=== PATIENT | male | born 1945 | race Caucasian/White ===

== ENCOUNTER → 2018-06-26 09:57 | Outpatient (CLI) | payer MEDICARE, OTHER, SELFPAY ==
--- NOTE | 2018-06-26 | DI.RAD.S_ITS ---
PROCEDURE: XR CERVICAL SPINE 4V OR 5V INDICATIONS: Cervicalgia TECHNIQUE: 6 views of the cervical spine were acquired, including bilateral oblique views and a swimmer's view. COMPARISON: None. FINDINGS: Bones: No fractures or dislocations to the C7 level. No suspicious lytic or blastic lesions are seen. Mild disc space narrowing can be seen at the C5-C6 and C6-C7 levels. Endplate irregularity and sclerosis can be seen throughout. On oblique images, there is mild to moderate disc space narrowing seen on the left at the C2-C3, C3-C4, and C6-C7 levels. On the right, there is mild to moderate disc space narrowing seen at C3-C4. Soft tissues: No prevertebral soft tissue swelling. The visualized lung apices are unremarkable. IMPRESSION: Age-appropriate cervical spine degenerative changes are seen by plain film. Dictated by: Mina Dickerson M.D. on 06/26/2018 at 10:01 Approved by: Mina Dickerson M.D. on 06/26/2018 at 10:04
[2018-06-26 11:26] LABS: Add Manual Diff / Slide Review NO; Basophils Percent Auto 0.6 % (0-2); Eosinophils Percent Auto 2.7 % (2-4); Hemoglobin 16.1 g/dL (13.5-17.5); Lymphocytes Percent Auto 19.9 % (25-40); Mean Corpuscular HGB Conc 34.9 % (30-36); Mean Corpuscular Hemoglobin 32.9 PG (26-34); Mean Corpuscular Volume 94.2 fL (80-100); Monocytes Percent Auto 8.5 % (3-14); Neutrophils Absolute Auto 5900 /uL (1500-7000); Neutrophils Percent Auto 68.3 % (50-75); Platelet Count 211 X10^3/uL (150-400); Red Blood Cell Count 4.89 X10^6/uL (4.5-5.9); Red Cell Distribution Width 13.6 % (11.6-14.8); White Blood Cell Count 8.6 X10^3/uL (4.5-11.0)
[2018-06-26 11:45] LABS: Alanine Aminotransferase 35 IU/L (21-72); Albumin 4.3 g/dL (3.5-5.0); Albumin Globulin Ratio 1.1 (1.0-2.8); Alkaline Phosphatase 69 U/L (38-126); Aspartate Aminotransferase 25 IU/L (17-59); Bilirubin Total 0.5 mg/dL (0.2-1.3); Blood Urea Nitrogen 21 mg/dL (9-20); Calcium 9.4 mg/dL (8.4-10.2); Carbon Dioxide 26 mmol/L (22-32); Chloride 100 mmol/L (98-107); Estimated Glomerular Filt Rate > 60.0 mL/min (>60); Globulin 3.8 g/dL (1.7-4.1); Glucose 238 mg/dL (80-110); HEMOLYSIS 16 (0-50); Potassium 4.5 mmol/L (3.4-5.1); Sodium 140 mmol/L (137-145); Total Protein 8.1 g/dL (6.3-8.2)
[2018-06-26 11:46] LABS: Hemoglobin A1C% w Est Avg Glu 8.6 % (4.0-6.0)
== END ==
PROVIDERS: Visit Provider Student in an Organized Health Care Education/Training Program
DX: M54.2 Cervicalgia (principal); E11.9 Type 2 diabetes mellitus without complications; E78.5 Hyperlipidemia, unspecified
CPT/HCPCS: 36415; 72050; 80053; 83036; 85025

== ENCOUNTER 2018-09-04 07:32 | Day surgery (SDC) | payer MEDICARE, OTHER, SELFPAY ==
[2018-09-04] VITALS (7 sets, daily range): BP systolic 113–154; BP diastolic 64–89; PULSE 79–93; RESP 15–18; TEMP 36.1–36.8; O2SAT 94–97; BMI 34.1
--- NOTE | 2018-09-04 08:44 | PM.HP.1 ---
History of Present Illness Date Patient Seen: 09/04/18 Time Patient Seen: 08:44 Chief complaint: 53235 Narrative: 73-year-old male who presents for colorectal screening. His last examination was [facility] ago at [facility]. States that he had some polyps at that time. However, he recently underwent a FIT test that was reportedly positive. On further history he denies any recent gastrointestinal symptoms. No nausea, vomiting, loss of appetite, unexplained weight loss, abdominal pain, change in bowel habits, diarrhea, constipation, melena, hematochezia, or bright red blood per rectum. Patient History Medical History Diabetes (Acute) Hyperlipidemia due to type 2 diabetes mellitus (Acute) Hypertension associated with diabetes (Acute) Obesity (Acute) Personal history of colonic polyps (Acute) Surgical History History of cholecystectomy (Acute) History of colonoscopy (Acute) History of umbilical hernia repair (Acute) Social History household members: spouse Family & Social History Social History: household members spouse Meds Home Medications Medication Instructions Recorded Confirmed Type atenolol 50 mg PO BID #0 11/16/03 09/04/18 History Lantus U-100 Insulin 23 unit SQ QPM #0 09/23/17 09/04/18 History glipizide 10 mg PO BIDAC #0 09/23/17 09/04/18 History losartan 50 mg PO DAILY 09/04/18 09/04/18 History Allergies Allergy/AdvReac Type Severity Reaction Status Date / Time Iodine and Iodide Containing Allergy Severe pt could Unverified 10/12/17 12:35 Produc not breathe [IODINE AND IODIDE CONTAINING PRODUC] Sulfa (Sulfonamide Allergy Severe My eyes Unverified 10/12/17 12:35 Antibiotics) close up [SULFA (SULFONAMIDE and my ANTIBIOTICS)] face gets puffy Review of Systems Review of Systems All systems reviewed & are unremarkable except as noted in HPI and below Exam Vital Signs (past 8 hours): - 09/04/18 07:52 Temperature 97.1 F L Pulse Rate 93 H Respiratory Rate 16 Blood Pressure 154/89 H Pulse Oximetry 97 Oxygen Delivery Method Room Air Narrative Exam Narrative: well-nourished well-developed obese male in no acute distress. Alert oriented x3 sclera nonicteric regular rate and rhythm Abdomen obese but soft and nondistended. Nontender. extremities show no clubbing or cyanosis blood sugar 216 today Objective Labs Labs: no radiographic studies for review Assessment & Plan Assessment & Plan narrative: 73-year-old male with personal history of colon polyps and recent positive Hemoccult test. Recommend colonoscopy. Technical details of the procedure were discussed. Risks, benefits, alternatives were explained. Risks including but not limited to sedation, aspiration, bleeding, pain, missed lesion, incomplete examination, need for further radiographic studies, colonic perforation, need for major abdominal surgery, and all attendant risks of major surgery were explained at length. All questions were answered to his satisfaction, and he voiced understanding. Consent was placed on the chart. We will proceed as above.
--- NOTE | 2018-09-04 08:48 | PM.PREOP ---
Pre-operative Note Interval Note History & Physical reviewed/Exam performed by Physician: Yes Changes to H&P: No H&P completed within 30 days and has changed as indicated here:: Patient seen and examined today. History and physical examination placed on the chart. Obviously, there have been no changes in the last 15 min. Proceed today with colonoscopy as planned. ASA Class (for procedural sedation): II
[2018-09-04] MEDS: MIDAZOLAM 5 MG/5 ML VIAL IV (09:04)
[2018-09-04] MEDS: fentaNYL 250 MCG/5 ML INJ IV (09:05)
--- NOTE | 2018-09-04 09:15 | PM.OP.ENDO ---
Operative Date/Time/Diagnoses Date of procedure: 09/04/18 Time of procedure: 09:15 Pre-op diagnosis: Personal history of colon polyps Post-op diagnosis: other ( diverticulosis but otherwise normal colon and rectum) Procedure & Clinicians Study performed: 1. Sedation per surgeon 2. Colonoscopy Same procedure as scheduled: Yes Indications: 73-year-old male who presents with personal history of colon polyps. Last endoscopy was 15 years ago. He also has a recent positive fit test. Colonoscopy is recommended. Surgeon: Jose J Posey Procedure Notes SCOAP/Timeout: yes Procedure in detail: After obtaining informed consent, the patient was brought to the GI suite and placed in the left lateral decubitus position on the examination table. After placement of appropriate monitors, the patient was given incremental doses of Versed and Fentanyl until an appropriate level of sedation was achieved. A time out was held per SCOAP protocol. A digital rectal examination was performed and did not reveal any masses or obstructing lesions. The colonoscope was gently passed into the patient's anus and the entire colon navigated to the level of the cecum with minimal difficulty. Once in the cecum, the scope was withdrawn being sure to go before and beyond all mucosal folds and prominences and get an excellent examination. The findings are noted above. At the level of the rectal vault, the scope was retroflexed and the internal anal canal was examined. The scope was straightened and air aspirated from the colon. The instrument was removed from the patient's body and the procedure was concluded. The patient was allowed to awaken from sedation without difficulty and taken to the post-anesthesia care unit in good condition. Scope withdrawal time: 9:30 min Sedation minutes: 22 Findings: diverticulosis and other findings ( otherwise normal colon and rectum) Specimen(s): none sent Complications: none Recommendations: High fiber diet and Other recommendation ( no need for repeat colonoscopy in the absence of any new symptoms) Plan for aftercare: 1. Discharge home Follow up: as needed Disposition: PACU
--- NOTE | 2018-09-04 09:20 | SUR.PHASEI ---
Some PAC activity seen.
== END 2018-09-04 10:03 | disposition home or self-care (01) ==
PROVIDERS: PCP Student in an Organized Health Care Education/Training Program; Visit Provider Surgery
PROC: 0DJD8ZZ Inspection of Lower Intestinal Tract, Via Natural or Artificial Opening Endoscopic (ICD-10-PCS; CPT 45378; principal; 2018-09-04 08:45)
DX: R19.5 Other fecal abnormalities (principal); Z86.010 Personal history of colon polyps; K57.30 Diverticulosis of large intestine without perforation or abscess without bleeding; E11.9 Type 2 diabetes mellitus without complications; E78.5 Hyperlipidemia, unspecified; I10 Essential (primary) hypertension; E66.9 Obesity, unspecified
CPT/HCPCS: 45378; 99152; J2250; J3010

== ENCOUNTER → 2019-04-03 09:32 | Outpatient (CLI) | payer MEDICARE, OTHER, SELFPAY ==
--- NOTE | 2019-04-03 | DI.US.S_ITS ---
PROCEDURE: US SCROTUM INDICATIONS: SLT TESTICULAR PAIN TECHNIQUE: Real-time scanning was performed of the scrotum and testicles, with image documentation. Color and pulse Doppler interrogation was performed of both testicles. COMPARISON: [facility], , TESTICLE IMAGING, 10/13/2015, 10:26. FINDINGS: Right: Testicle is normal in size at 3.9 x 2.4 x 2.7 cm, and homogenous in echotexture. Calcification along the tunica a beginning in redemonstrated. Epididymis is normal in overall size and morphology. Small right hydrocele. varicoceles. Overlying scrotal skin is normal in thickness. Left: Testicle is normal in size at 3.5 x 2.1 x 2.5 cm, and homogeneous in echotexture. Calcification is seen along the anterior tunica albuginea. Epididymis is normal in overall size and morphology. Small hydrocele and varicocele. Overlying scrotal skin is normal in thickness. Doppler: Color and pulse Doppler demonstrate normal and symmetric arterial flow in both testicles. IMPRESSION: 1. Normal testicles bilaterally. 2. Calcification seen along the anterior tunica albuginea bilaterally which is likely chronic. 3. Bilateral small hydroceles. 4. Left varicocele. Dictated by: Sunil BRAND Interpreted: Joe Luz MD on 04/03/2019 at 10:45 Approved by: Joe Luz M.D. on 04/03/2019 at 16:03
== END ==
PROVIDERS: PCP Student in an Organized Health Care Education/Training Program; Visit Provider Student in an Organized Health Care Education/Training Program
DX: N50.812 Left testicular pain (principal); N43.3 Hydrocele, unspecified; I86.1 Scrotal varices
CPT/HCPCS: 76870

== ENCOUNTER 2019-05-21 15:48 | Emergency (ER) | payer MEDICARE, OTHER, SELFPAY ==
[2019-05-21 15:50] VITALS: BP 167/83; PULSE 95; RESP 18; TEMP 36.6; O2SAT 95; BMI 32.8
--- NOTE | 2019-05-21 15:55 | DI.RAD.S_ITS ---
PROCEDURE: XR RIBS LT MIN 3V W CXR1V INDICATIONS: fall/pain TECHNIQUE: 3 views of the left ribs were acquired, along with a single view chest. COMPARISON: None. FINDINGS: Surgical changes and devices: Cholecystectomy clips. Metallic BB projects over the left upper quadrant of the abdomen. Bones and chest wall: Left eighth and ninth rib fractures noted. No suspicious bony lesions. Overlying soft tissues appear unremarkable. Lungs and pleura: No pneumothorax. Lungs appear clear small left-sided pleural fluid collection. Increased opacification of the left lung base which could represent atelectasis, aspiration or contusion. Mediastinum: Mediastinal contours appear normal. Heart size is normal. IMPRESSION: 1. Left eighth and ninth rib fractures. 2. Trace left-sided pleural fluid collection concerning for hemothorax. No pneumothorax identified. 3. Patchy left basilar opacities compatible atelectasis, aspiration or pulmonary contusion. Dictated by: Antoinette Hurley MD, PhD on 05/21/2019 at 16:41 Approved by: Antoinette Hurley MD, PhD on 05/21/2019 at 16:44
--- NOTE | 2019-05-21 15:55 | DI.RAD.S_ITS ---
PROCEDURE: XR THORACIC SPINE 3V INDICATIONS: fall/pain TECHNIQUE: 3 views of the thoracic spine were acquired. COMPARISON: None. FINDINGS: Bones: No fractures or dislocations. No suspicious bony lesions. 12 pairs of ribs are noted, and appear intact where visualized. Moderate multilevel degenerative disc changes. Soft tissues: No paravertebral stripe thickening. IMPRESSION: No fracture. No acute osseous lesion. If symptoms and/or clinical suspicion for pathology persists, evaluation with MRI may be helpful for further assessment. Dictated by: Antoinette Hurley MD, PhD on 05/21/2019 at 16:44 Approved by: Antoinette Hurley MD, PhD on 05/21/2019 at 16:45
--- NOTE | 2019-05-21 16:51 | ED_ITS ---
HPI - Fall General Chief Complaint: Fall Stated Complaint: GLF, L side and back pain Time Seen by Provider: 05/21/19 15:55 Source: patient and EMS Mode of arrival: EMS Limitations: no limitations History of Present Illness HPI Narrative: Patient comes emergency department complaining of left posterior rib pain [facility] Patient states he was walking outside and slipped in the mud and landed directly on his left side. He states he did not hit his head or lose consciousness. He denies any spinal pain. No difficulty breathing or pain with inspiration. Related Data Home Medications Medication Instructions Recorded Confirmed Lantus U-100 Insulin 23 unit SQ QPM #0 09/23/17 03/13/19 glipizide 10 mg PO BIDAC #0 09/23/17 03/13/19 losartan 50 mg PO DAILY 09/04/18 03/13/19 Resmed Airsense 10 CPAP #1 ea 03/13/19 03/13/19 atenolol 50 mg tablet 50 mg PO DAILY #0 tab 03/13/19 03/13/19 metformin PO BID 03/13/19 03/13/19 Previous Rx's Medication Instructions Recorded albuterol sulfate 90 mcg/actuation 1 inh INHALATION Q4-6H PRN #18 gram 01/13/19 aerosol inhaler hydrocodone-acetaminophen 1 tab PO Q4H PRN #20 tab 05/21/19 Allergies Allergy/AdvReac Type Severity Reaction Status Date / Time Iodine and Iodide Containing Allergy Severe Anaphylaxis Verified 05/21/19 16:02 Produc [IODINE AND IODIDE CONTAINING PRODUC] Sulfa (Sulfonamide Allergy Severe My eyes Verified 05/21/19 16:02 Antibiotics) close up [SULFA (SULFONAMIDE and my ANTIBIOTICS)] face gets puffy Review of Systems Constitutional Constitutional: Denies chills, Denies fatigue, Denies fever(s), Denies frequent falls, Denies lethargy and Denies weakness Eyes Eyes: Denies change in vision, Denies eye discharge, Denies irritation and Denies loss of vision ENT Ears, Nose, Mouth, and Throat: Denies change in voice, Denies dizziness, Denies neck pain, Denies sore throat and Denies throat swelling Cardiovascular Cardiovascular: Denies chest pain, Denies irregular heart rhythm, Denies lightheadedness, Denies palpitations, Denies dyspnea, Denies dyspnea on exertion and Denies orthopnea Respiratory Respiratory: Denies cough, Denies dyspnea, Denies dyspnea on exertion and Denies wheezing Gastrointestinal Gastrointestinal: Denies abdominal pain, Denies change in bowel habits, Denies diarrhea, Denies nausea and Denies vomiting Genitourinary Genitourinary: Denies hematuria, Denies flank pain, Denies urinary incontinence and Denies urinary urgency Musculoskeletal Musculoskeletal: Reports back pain, Denies muscle weakness, Denies neck pain, Denies numbness and Denies tingling Integumentary/Breasts Skin/Breast: Denies pruritus, Denies erythema, Denies rash and Denies wounds Neurologic Neurologic: Denies behavioral changes, Denies confusion, Denies dizziness, Denies frequent falls, Denies loss of vision, Denies numbness, Denies tingling and Denies weakness Psychiatric Psychiatric: Denies anxiety, Denies behavioral changes, Denies confusion, Denies depression, Denies homicidal ideation and Denies suicidal ideation Endocrine Endocrine: Denies fatigue, Denies flushing and Denies palpitations Hematologic/Lymphatic Hematologic/Lymphatic: Denies easy bruising Allergic/Immunologic Allergic/Immunologic: Denies urticaria, Denies throat swelling and Denies wheezing Patient History Medical History Diabetes (Acute) Hyperlipidemia due to type 2 diabetes mellitus (Acute) Hypertension associated with diabetes (Acute) Obesity (Acute) Obstructive sleep apnea of adult (Chronic ~1994) Personal history of colonic polyps (Acute) Surgical History History of cholecystectomy (Acute) History of colonoscopy (Acute) History of umbilical hernia repair (Acute) Social History marital status: household members: spouse Smoking Status: Former smoker Exam Initial Vital Signs Initial Vital Signs: Vital Signs Temperature 97.8 F 05/21/19 15:50 Pulse Rate 95 H 05/21/19 15:50 Respiratory Rate 18 05/21/19 15:50 Blood Pressure 167/83 H 05/21/19 15:50 Pulse Oximetry 95 05/21/19 15:50 Const General: cooperative and well developed Nutritional Appearance: well nourished Orientation: alert, awake, oriented x3 and not confused HENMT Head: normocephalic and atraumatic Ears: external ears normal Nose: external nose normal and No nasal discharge Face and sinus: sinuses nontender, face symmetric, no sinus tenderness and No dry mucous membranes Mouth: oral mucosae normal and moist mucous membranes Teeth and gingiva: dentition normal Eyes General: appearance normal, both eyes and all related structures Eyelids: eyelids normal Conjunctivae: conjunctivae normal Sclera: sclerae normal Pupils: PERRL EOM: EOM intact bilaterally Neck Neck: normal visual inspection, trachea midline, No lymphadenopathy, No midline deformity and No JVD Lymphatic: No lymphedema Chest Chest: normal inspection of the chest Resp Effort & Inspection: normal respiratory effort, able to speak in complete sentences, no respiratory distress and no use of accessory muscles Auscultation: clear to auscultation bilaterally, no rales, no rhonchi and no wheezes Cardio Rate: regular rate Rhythm: regular rhythm Heart Sounds: no click, no gallops, no murmurs and no rubs Pulses: normal peripheral pulses GI Inspection: non-distended Palpation: soft, no hepatosplenomegaly, No guarding, No pulsatile mass and No tender Back/Spine/Pelvis Back: No CVA tenderness Cervical Spine: cervical ROM normal and No pain with cervical ROM Thoracic/Lumbar Spine: thoracic and lumbar spine normal to inspection Other: Patient has no tenderness or step-off and the level of the spine. He is noted to have point tenderness of the posteromedial aspect of his left lower ribcage. No step-off or crepitus. No bony instability. Skin General: no rashes or lesions noted, No jaundice and No petechiae Neuro General: alert, oriented x3, gait normal and no focal motor deficits Speech: speech normal Extrem General: full ROM, no clubbing, cyanosis or edema, no pedal edema and no calf tenderness Psych Appearance: well kempt Mental Status: mental status grossly normal Attitude: cooperative Thought Content: normal and suicidality Judgment: judgment good Course Course Course Narrative: Patient was worked up with x-rays of the ribs and thoracic spine. He was found to have fractures of his 8th and 9th ribs posteriorly, with small amount of fluid in the chest cavity on the left, with possibility of atelectasis, aspiration, or contusion. Considering the circumstances, I felt that it was most likely that the patient had either atelectasis or a small area of contusion or even small hemothorax. At this point in time, the patient is breathing comfortably the areas very small and the ribcage is stable. As such, I feel patient is stable for discharge home. We have discussed home management of symptoms, as well as the usual indications for return. Patient is given incentive spirometer to help encourage deep breathing. He will also be given a prescription for analgesia for home. Orders Ordered: ED Orders 05/21/19 15:55 XR ribs LT min 3V w CXR1V Stat XR thoracic spine 3V Stat Vital Signs Vital signs: Vital Signs - 8 hr 05/21/19 15:50 Temperature 97.8 F Pulse Rate 95 H Respiratory Rate 18 Blood Pressure 167/83 H Pulse Oximetry 95 MDM - Fall Medical Records Attestation: I reviewed the patient's medical records. Imaging Data Chest/ribs x-ray: Radiologist's impression: PROCEDURE: XR RIBS LT MIN 3V W CXR1V INDICATIONS: fall/pain TECHNIQUE: 3 views of the left ribs were acquired, along with a single view chest. COMPARISON: None. FINDINGS: Surgical changes and devices: Cholecystectomy clips. Metallic BB projects over the left upper quadrant of the abdomen. Bones and chest wall: Left eighth and ninth rib fractures noted. No suspicious bony lesions. Overlying soft tissues appear unremarkable. Lungs and pleura: No pneumothorax. Lungs appear clear small left-sided pleural fluid collection. Increased opacification of the left lung base which could represent atelectasis, aspiration or contusion. Mediastinum: Mediastinal contours appear normal. Heart size is normal. IMPRESSION: 1. Left eighth and ninth rib fractures. 2. Trace left-sided pleural fluid collection concerning for hemothorax. No pneumothorax identified. 3. Patchy left basilar opacities compatible atelectasis, aspiration or pulmonary contusion. Dictated by: Antoinette Hurley MD, PhD on 05/21/2019 at 16:41 Approved by: Antoinette Hurley MD, PhD on 05/21/2019 at 16:44 T spine x-ray: Radiologist's impression: PROCEDURE: XR THORACIC SPINE 3V INDICATIONS: fall/pain TECHNIQUE: 3 views of the thoracic spine were acquired. COMPARISON: None. FINDINGS: Bones: No fractures or dislocations. No suspicious bony lesions. 12 pairs of ribs are noted, and appear intact where visualized. Moderate multilevel degenerative disc changes. Soft tissues: No paravertebral stripe thickening. IMPRESSION: No fracture. No acute osseous lesion. If symptoms and/or clinical suspicion for pathology persists, evaluation with MRI may be helpful for further assessment. Dictated by: Antoinette Hurley MD, PhD on 05/21/2019 at 16:44 Approved by: Antoinette Hurley MD, PhD on 05/21/2019 at 16:45 Discharge Plan Departure Patient Disposition: Home Clinical Impression: Multiple rib fractures Qualifiers: Encounter type: initial encounter Fracture type: closed Laterality: left Qualified Code(s): S22.42XA - Multiple fractures of ribs, left side, initial encounter for closed fracture Discharge Date/Time: 05/21/19 17:25 Instructions: DI for Rib Fracture Activity Restrictions/Additional Instructions: Your x-rays show that you have broken two of your ribs on the backside. These will heal on their own, but will be painful in the process. You may take the pain medication as needed, and be sure to do the breathing exercises, as direct ed, to keep your lungs open and prevent formation of pneumonia. Prescriptions: New hydrocodone-acetaminophen 5-325 mg tablet 1 tab PO Q4H PRN (Reason: pain) Qty: 20 RF: 0 No Action albuterol sulfate 90 mcg/actuation HFA aerosol inhaler 1 inh INHALATION Q4-6H PRN (Reason: shortness of breath) Qty: 18 RF: 0 Lantus U-100 Insulin 100 UNIT/1 ML solution 23 unit SQ QPM Qty: 0 RF: 0 glipizide 10 MG tablet 10 mg PO BIDAC Qty: 0 RF: 0 atenolol 50 mg tablet 50 mg PO DAILY Qty: 0 RF: 0 losartan 50 mg Tablet 50 mg PO DAILY RF: 0 metformin PO BID RF: 0 (DME) Resmed Airsense 10 CPAP Qty: 1 RF: 0 Referrals: Shahnaz Mahmood PA-C [Primary Care Provider] -
--- NOTE | 2019-05-21 17:02 | CM.DPC ---
spoke with Dr. Gonzales - pt. child psychiatrist who saw him last year stated that although he didn't routinely care for him, he only knew the pt. to have a history of ADHD and no other mental/behavioral health diagnosis.
--- NOTE | 2019-05-21 17:04 | CM.DANOTE ---
spoke to father Wiliam via phone. Reported that pt. contacted via fax himself, pt. mother, brother and sister Toño about midnight to tell them his was tired of the pain and tell them he loved them. The patient then faxed his brother that he'd let him know the location of his car and keys in a short while so he could pick them up. Brother contacted father who advised him to call police. found pt. care in parking lot of [place]. KIRK called out to pt. -who was on the bridge - the pt. started jogging and the police had to catch him and grab him as he was climbing over the railing. Police report is in chart. Father denies any prior SI or HI and states he didn'd see this incident coming at all.
--- NOTE | 2019-05-21 17:08 | CM.DPC ---
Radha James updated for plan of care. Awaiting DCR assessment. Phone number for mom (Celeste... [phone]) and father (Wiliam...[phone]). To contact if needed. Will gladly drive from [place].
[2019-05-21 17:15] VITALS: BP 144/73; PULSE 80; RESP 12; O2SAT 98
== END 2019-05-21 17:25 | disposition home or self-care (01) ==
PROVIDERS: Emergency Provider Emergency Medicine; PCP Student in an Organized Health Care Education/Training Program
DX: S22.42XA Multiple fractures of ribs, left side, initial encounter for closed fracture (principal); W01.0XXA Fall on same level from slipping, tripping and stumbling without subsequent striking against object, initial encounter
CPT/HCPCS: 71101; 72072; 99282; 99283

== ENCOUNTER → 2019-06-14 15:50 | Outpatient (CLI) | payer MEDICARE, OTHER, SELFPAY ==
--- NOTE | 2019-06-14 | DI.RAD.S_ITS ---
PROCEDURE: XR RIBS LT MIN 3V W CXR1V INDICATIONS: closed fracture of mult ribs of left side TECHNIQUE: 2 views of the left ribs were acquired, along with a single view chest. COMPARISON: [facility], RACIEL, CHEST 2 VIEW, 07/14/2017, 13:20. [facility], , XR RIBS LT MIN 3V W CXR1V, 05/21/2019, 16:13. FINDINGS: Surgical changes and devices: Cholecystectomy clips are noted. Bones and chest wall: Minimally displaced left eighth and ninth rib fractures are again noted. No suspicious bony lesions. Overlying soft tissues appear unremarkable. Lungs and pleura: No pleural effusions or pneumothorax. Lungs appear clear. Mediastinum: Mediastinal contours appear normal. Heart size is normal. IMPRESSION: 1. Left eighth and ninth rib fractures with minimal displacement. Dictated by: Tavo Ramos M.D. on 06/14/2019 at 16:30 Approved by: Tavo Ramos M.D. on 06/14/2019 at 16:34
== END ==
PROVIDERS: PCP Student in an Organized Health Care Education/Training Program; Visit Provider Physician Assistant
DX: S22.42XD Multiple fractures of ribs, left side, subsequent encounter for fracture with routine healing (principal); R07.81 Pleurodynia
CPT/HCPCS: 71101

== ENCOUNTER → 2019-07-09 14:37 | Outpatient (ROUT) | payer MEDICARE, OTHER, SELFPAY ==
[2019-07-09 15:22] LABS: Hemoglobin A1C% w Est Avg Glu 9.1 % (4.0-6.0)
== END ==
PROVIDERS: PCP Student in an Organized Health Care Education/Training Program; Visit Provider Student in an Organized Health Care Education/Training Program
DX: E11.9 Type 2 diabetes mellitus without complications (principal)
CPT/HCPCS: 83036

== ENCOUNTER → 2019-10-26 15:38 | Outpatient (ROUT) | payer MEDICARE, OTHER, SELFPAY | PROVIDERS: PCP Student in an Organized Health Care Education/Training Program; Visit Provider Internal Medicine | DX: S90.822A Blister (nonthermal), left foot, initial encounter (principal) | CPT/HCPCS: 87070; 87075; 87205 ==

== ENCOUNTER → 2019-12-08 08:15 | Outpatient (CLI) | payer MEDICARE, OTHER, SELFPAY ==
[2019-12-08 08:55] LABS: Add Manual Diff / Slide Review NO; Basophils Absolute Auto 0 /uL (0-100); Basophils Percent Auto 0.6 % (0-2); Eosinophils Absolute Auto 200 /uL (0-450); Eosinophils Percent Auto 3.6 % (2-4); Hematocrit 45.2 % (41-53); Hemoglobin 15.9 g/dL (13.5-17.5); Lymphocytes Absolute Auto 1500 /uL (1100-4500); Lymphocytes Percent Auto 22.6 % (25-40); Mean Corpuscular HGB Conc 35.3 % (30-36); Mean Corpuscular Hemoglobin 33.4 PG (26-34); Mean Corpuscular Volume 94.9 fL (80-100); Monocytes Absolute Auto 600 /uL (0-900); Monocytes Percent Auto 9.6 % (3-14); Neutrophils Absolute Auto 4200 /uL (1500-7000); Neutrophils Percent Auto 63.6 % (50-75); Platelet Count 194 X10^3/uL (150-400); Red Blood Cell Count 4.76 X10^6/uL (4.5-5.9); Red Cell Distribution Width 14.5 % (11.6-14.8); White Blood Cell Count 6.6 X10^3/uL (4.5-11.0)
[2019-12-08 09:15] LABS: Hemoglobin A1C% w Est Avg Glu 8.1 % (4.0-6.0)
[2019-12-08 09:16] LABS: Alanine Aminotransferase 36 IU/L (<50); Albumin 4.2 g/dL (3.5-5.0); Albumin Globulin Ratio 1.1 (1.0-2.8); Alkaline Phosphatase 65 U/L (38-126); Aspartate Aminotransferase 33 IU/L (17-59); BUN Creatinine Ratio 24.3 (6-22); Bilirubin Total 0.5 mg/dL (0.2-1.3); Blood Urea Nitrogen 18 mg/dL (9-20); Calcium 9.6 mg/dL (8.4-10.2); Carbon Dioxide 25 mmol/L (22-32); Chloride 101 mmol/L (98-107); Cholesterol 149 mg/dL (140-199); Estimated Glomerular Filt Rate > 60.0 mL/min (>60); Globulin 3.7 g/dL (1.7-4.1); Glucose 221 mg/dL (80-110); HDL Cholesterol 58 mg/dL (40-60); HEMOLYSIS < 15 (0-50); LDL Cholesterol Calculated 69 mg/dL (<100); Potassium 4.3 mmol/L (3.4-5.1); Sodium 136 mmol/L (137-145); Total Protein 7.9 g/dL (6.3-8.2); Triglycerides 110 mg/dL (35-150)
== END ==
PROVIDERS: PCP Student in an Organized Health Care Education/Training Program; Referring Provider Student in an Organized Health Care Education/Training Program; Visit Provider Student in an Organized Health Care Education/Training Program
DX: E78.5 Hyperlipidemia, unspecified (principal); E11.40 Type 2 diabetes mellitus with diabetic neuropathy, unspecified
CPT/HCPCS: 36415; 80053; 80061; 83036; 85025

== ENCOUNTER → 2020-09-11 14:58 | Outpatient (ROUT) | payer MEDICARE, OTHER, SELFPAY ==
[2020-09-11 15:23] LABS: Hematocrit 46.9 % (41-53); Hemoglobin 15.5 g/dL (13.5-17.5); Mean Corpuscular HGB Conc 33.1 % (30-36); Mean Corpuscular Hemoglobin 32.2 PG (26-34); Mean Corpuscular Volume 97.2 fL (80-100); Platelet Count 216 X10^3/uL (150-400); Red Blood Cell Count 4.82 X10^6/uL (4.5-5.9); White Blood Cell Count 8.9 X10^3/uL (4.5-11.0)
[2020-09-11 15:39] LABS: Alanine Aminotransferase 32 IU/L (<50); Albumin 4.2 g/dL (3.5-5.0); Albumin Globulin Ratio 1.3 (1.0-2.8); Alkaline Phosphatase 65 U/L (38-126); Aspartate Aminotransferase 26 IU/L (17-59); BUN Creatinine Ratio 26.3 (6-22); Bilirubin Total 0.4 mg/dL (0.2-1.3); Blood Urea Nitrogen 25 mg/dL (9-20); Calcium 10.2 mg/dL (8.4-10.2); Carbon Dioxide 32 mmol/L (22-32); Chloride 99 mmol/L (98-107); Estimated Glomerular Filt Rate > 60.0 mL/min (>60); Globulin 3.2 g/dL (1.7-4.1); Glucose 178 mg/dL (80-110); HEMOLYSIS < 15 (0-50); Potassium 4.6 mmol/L (3.4-5.1); Sodium 138 mmol/L (137-145); Total Protein 7.4 g/dL (6.3-8.2)
== END ==
PROVIDERS: PCP Student in an Organized Health Care Education/Training Program; Visit Provider Student in an Organized Health Care Education/Training Program
DX: I10 Essential (primary) hypertension (principal); E11.40 Type 2 diabetes mellitus with diabetic neuropathy, unspecified; E11.65 Type 2 diabetes mellitus with hyperglycemia; E78.5 Hyperlipidemia, unspecified
CPT/HCPCS: 80053; 83036; 85027

== ENCOUNTER → 2021-02-11 11:20 | Outpatient (CLI) | payer MEDICARE, OTHER, SELFPAY ==
[2021-02-11 12:26] LABS: COVID19 -Nasal RAPID Negative (Negative)
== END ==
PROVIDERS: PCP Student in an Organized Health Care Education/Training Program; Referring Provider Student in an Organized Health Care Education/Training Program; Visit Provider Student in an Organized Health Care Education/Training Program
DX: R05 Cough (principal); R50.9 Fever, unspecified; Z20.822 Contact with and (suspected) exposure to COVID-19
CPT/HCPCS: 87635

== ENCOUNTER → 2021-10-29 10:39 | Outpatient (CLI) | payer OTHER, SELFPAY ==
[2021-10-29 11:59] LABS: COVID19 -Nasal RAPID Negative (Negative)
== END ==
PROVIDERS: Family Provider Student in an Organized Health Care Education/Training Program; PCP Student in an Organized Health Care Education/Training Program; Referring Provider Student in an Organized Health Care Education/Training Program; Visit Provider Internal Medicine
DX: Z20.822 Contact with and (suspected) exposure to COVID-19 (principal)
CPT/HCPCS: 87635; C9803

== ENCOUNTER → 2021-10-30 12:33 | Outpatient (CLI) | payer OTHER, SELFPAY ==
--- NOTE | 2021-11-04 11:17 | PM.PFT.1 ---
Pulmonary Function Test Referral & Results Date Patient Seen: 10/30/21 Requesting provider: Chris Morin Results: The spirometry demonstrates an FVC of 1.91 L which is 50% of predicted. The FEV1 was measured at 1.66 L which is 61% of predicted. The FEV1/FVC ratio was 87 which is 120% of predicted. Following the administration of bronchodilator there was no notable change. Lung volumes show an SVC of 2.42 Lwhich is 58% of predicted. The diffusing capacity was measured at 18.69 which is 63% of predicted. No hemoglobin value was provided, so no correction for potential anemia could be made, if appropriate. The maximum voluntary ventilation was reduced Interpretation: This study demonstrates possible mild obstructive lung disease based on reduction FEV1 although FEV1/FVC ratio is preserved. There is no evidence of benefit after bronchodilator administration There is a moderate reduction in lung volumes suggesting moderate restrictive lung disease is present which would potentially explain the abnormality of FEV1 above There is also a [id number] reduction diffusing capacity suggesting disease at the capillary alveolar level Clinical correlation suggested
== END ==
PROVIDERS: Family Provider Student in an Organized Health Care Education/Training Program; PCP Student in an Organized Health Care Education/Training Program; Referring Provider Nurse Practitioner Family; Visit Provider Nurse Practitioner Family
DX: R06.00 Dyspnea, unspecified (principal); Z87.891 Personal history of nicotine dependence; J98.8 Other specified respiratory disorders
CPT/HCPCS: 94060; 94726; 94729

== ENCOUNTER 2021-12-11 10:46 | Emergency (ER) | payer MEDICARE, OTHER, SELFPAY ==
[2021-12-11] VITALS (7 sets, daily range): BP systolic 102–136; BP diastolic 55–82; PULSE 48–56; RESP 15–18; TEMP 36.6; O2SAT 96–98; BMI 33.7
--- NOTE | 2021-12-11 15:18 | ED.MALEGU ---
HPI - Male Genitourinary <Rae Pulido, [facility] - Last Filed: 12/11/21 16:39> General Chief complaint: Urogenital-Male Stated complaint: bladder infection Time Seen by Provider: 12/11/21 15:07 Source: patient Mode of arrival: Ambulatory History of Present Illness HPI Narrative: This is a 76-year-old male with history of low back pain, diabetes on insulin and states that he has history of ?bladder pains ?who presents to the emergency department today after physical therapy for bladder pressure and concern for urinary infection. Patient states that he was at physical therapy, was doing one of the stretches near the end which exacerbated his low back pain, he states that he started having bladder spasms at that time as well and wanted to have his urine evaluated for infection. He denies any fever, chills, your vomiting. He states that he is on tamsulosin for his prostate, denies ever needing to catheterize himself. He denies any dribbling, penile discharge, flank pain, or other symptom at this time. Patient endorses low back pain and tightness of the paraspinal muscles in his low lumbar area. Related Data Home Medications Medication Instructions Recorded Confirmed glipizide 10 mg tablet 10 mg PO BIDAC ##0 09/23/17 03/13/19 insulin glargine 100 unit/mL 23 unit SQ QPM ##0 09/23/17 03/13/19 subcutaneous solution (Lantus U-100 Insulin) losartan 50 mg tablet 50 mg PO DAILY 09/04/18 03/13/19 Resmed Airsense 10 CPAP #1 ea 03/13/19 03/13/19 atenolol 50 mg tablet 50 mg PO DAILY #0 tabs 03/13/19 03/13/19 metformin PO BID 03/13/19 03/13/19 Previous Rx's Medication Instructions Recorded albuterol sulfate 90 mcg/actuation 1 inh inhalation Q4-6H PRN 01/13/19 aerosol inhaler shortness of breath #18 grams hydrocodone 5 mg-acetaminophen 325 1 tab PO Q4H PRN pain #20 tabs 05/21/19 mg tablet Allergies Allergy/AdvReac Type Severity Reaction Status Date / Time Iodine and Iodide Containing Allergy Severe Anaphylaxis Verified 12/11/21 11:03 Produc [IODINE AND IODIDE CONTAINING PRODUC] Sulfa (Sulfonamide Allergy Severe My eyes Verified 12/11/21 11:03 Antibiotics) close up [SULFA (SULFONAMIDE and my ANTIBIOTICS)] face gets puffy Review of Systems <CHELY Raymond - Last Filed: 12/11/21 16:39> Review of Systems Narrative: General: denies fever, chills, malaise, sweats, fatigue Head/Neck: denies headache, neck pain, dizziness Eyes: denies visual changes, eye pain Cardio: denies chest pain, palpitations, edema Respiratory: denies dyspnea, cough, orthopnea GI: denies abdominal pain, nausea, vomiting, or diarrhea : denies dysuria, hematuria, urinary retention, endorses urinary frequency and bladder pressure, denies any incontinence or dribbling MSK: denies joint pain, muscle weakness Skin: denies rash, itching, skin lesions or other Neuro: denies numbness, tingling Patient History <CHELY Raymond - Last Filed: 12/11/21 16:39> Medical History Diabetes Hyperlipidemia due to type 2 diabetes mellitus Hypertension associated with diabetes Obesity Obstructive sleep apnea of adult (~1994) Personal history of colonic polyps Surgical History History of cholecystectomy History of colonoscopy History of umbilical hernia repair Social History marital status: household members: spouse Smoking Status: Former smoker Smoking Status: Former smoker alcohol intake frequency: holidays/special occasions only Substance Use Type: does not use Exam <CHELY Raymond - Last Filed: 12/11/21 16:39> Narrative Exam Narrative: Independently reviewed vitals signs and nursing notes. General: cooperative, comfortable, in no acute distress, well groomed Head: atraumatic, symmetrical facial expressions Neck: supple Eyes: equal round and reactive, EOMI, conjunctiva normal Nose: nares patent, no rhinorrhea Mouth/Throat: moist mucus membranes Cardiovascular: regular rate and rhythm, no peripheral edema, warm extremities Respiratory: normal effort, able to speak in complete sentences, no audible wheezing, stridor, or rales. No retractions or tachypnea. GI: abdomen soft, nontender to palpation, nondistended, no masses, no exquisite tenderness with exam, without guarding or rebound. MSK: moves all extremities, neurovascularly intact, no weakness, normal tone Skin: brisk capillary refill, no rash, no erythema Neuro: normal speech and cognition, A&O x3 Psych: mental status is grossly normal, congruent mood, normal affect, pleasant and cooperative Initial Vital Signs Initial Vital Signs: Vital Signs Temperature 97.8 F 12/11/21 11:02 Pulse Rate 56 L 12/11/21 11:02 Respiratory Rate 15 12/11/21 11:02 Blood Pressure 136/64 12/11/21 11:02 Pulse Oximetry 98 12/11/21 11:02 Oxygen Delivery Method 12/11/21 11:02 <Kymberly Andrews DO - Last Filed: 12/19/21 18:36> Initial Vital Signs Initial Vital Signs: Vital Signs Temperature 97.8 F 12/11/21 11:02 Pulse Rate 56 L 12/11/21 11:02 Respiratory Rate 15 12/11/21 11:02 Blood Pressure 136/64 12/11/21 11:02 Pulse Oximetry 98 12/11/21 11:02 Oxygen Delivery Method 12/11/21 11:02 Course <CHELY Raymond - Last Filed: 12/11/21 16:39> Orders Ordered: Discontinued Medications Acetaminophen (Acetaminophen 325 Mg Tablet) 975 mg PO NOW ONE Stop: 12/11/21 15:21 Last Admin: 12/11/21 15:46 Dose: 975 mg Documented By: LORIN Lidocaine (Lidocaine Patch 1 Each Adh..Patch) 1 each TOP NOW ONE Stop: 12/11/21 15:21 Last Admin: 12/11/21 15:46 Dose: 1 each Documented By: OW Vital Signs Vital signs: Vital Signs - 8 hr 12/11/21 11:02 12/11/21 14:27 12/11/21 14:20 Temperature 97.8 F Pulse Rate 56 L 54 L Respiratory Rate 15 18 Blood Pressure 136/64 114/55 L Pulse Oximetry 98 98 Oxygen Delivery Method Room Air 12/11/21 14:26 12/11/21 14:26 12/11/21 14:30 Temperature Pulse Rate 49 L 48 L Respiratory Rate Blood Pressure 114/55 L Pulse Oximetry 98 97 Oxygen Delivery Method 12/11/21 14:31 12/11/21 14:31 12/11/21 15:00 Temperature Pulse Rate 48 L Respiratory Rate Blood Pressure 103/57 L 102/82 Pulse Oximetry 96 Oxygen Delivery Method 12/11/21 15:00 Temperature Pulse Rate 50 L Respiratory Rate Blood Pressure Pulse Oximetry 98 Oxygen Delivery Method <Kymberly Andrews DO - Last Filed: 12/19/21 18:36> Orders Ordered: Discontinued Medications Acetaminophen (Acetaminophen 325 Mg Tablet) 975 mg PO NOW ONE Stop: 12/11/21 15:21 Last Admin: 12/11/21 15:46 Dose: 975 mg Documented By: OW Lidocaine (Lidocaine Patch 1 Each Adh..Patch) 1 each TOP NOW ONE Stop: 12/11/21 15:21 Last Admin: 12/11/21 15:46 Dose: 1 each Documented By: LORIN Vital Signs Vital signs: Vital Signs - 8 hr 12/11/21 11:02 12/11/21 14:27 12/11/21 14:20 Temperature 97.8 F Pulse Rate 56 L 54 L Respiratory Rate 15 18 Blood Pressure 136/64 114/55 L Pulse Oximetry 98 98 Oxygen Delivery Method Room Air 12/11/21 14:26 12/11/21 14:26 12/11/21 14:30 Temperature Pulse Rate 49 L 48 L Respiratory Rate Blood Pressure 114/55 L Pulse Oximetry 98 97 Oxygen Delivery Method 12/11/21 14:31 12/11/21 14:31 12/11/21 15:00 Temperature Pulse Rate 48 L Respiratory Rate Blood Pressure 103/57 L 102/82 Pulse Oximetry 96 Oxygen Delivery Method 12/11/21 15:00 Temperature Pulse Rate 50 L Respiratory Rate Blood Pressure Pulse Oximetry 98 Oxygen Delivery Method MDM - Male Genitourinary <CHELY Raymond - Last Filed: 12/11/21 16:39> Lab Data Labs: Lab Results 12/11/21 Range/Units 14:22 Urine Color Yellow Urine Appearance Clear Urine pH 5.0 (4.5-8.0) Ur Specific [place] 1.020 (1.000-1.035) Urine Protein Negative (Negative) Urine Glucose (UA) 2+ H (Negative) g/dL Urine Ketones Negative (NEGATIVE) Urine Occult Blood Negative (Negative) Urine Nitrate Negative (Negative) Urine Bilirubin Negative (NEGATIVE) Urine Urobilinogen 0.2 (0.2) E.U./dL Ur Leukocyte Esterase Negative (NEGATIVE) Urine RBC None seen (0-5/HPF) Urine WBC None seen (0-5/HPF) Urine Bacteria None seen (None) Ur Culture Indicated? Cult not indicated Point of Care Testing Glucose POC 101 Urine Dip Bedside Urine Glucose 1000 mg/dl Bedside Urine Bilirubin - Negative Bedside Urine Ketone - Negative Urine Specific [place] 1.025 Bedside Urine Occult Blood - Negative Bedside Urine pH 6.0 Bedside Urine Protein - Negative Bedside Urine Urobilinogen - Negative Bedside Urine Nitrite - Negative Bedside Urine Leukocytes - Negative Esterase MDM Narrative Medical decision making narrative: This is a pleasant 76-year-old male with history of diabetes-insulin dependent, hypertension, enlarged prostate on tamsulosin who presents to the emergency department After his PT appointment for urinary frequency/bladder pressure, and exacerbation of his chronic low back pain during a stretch while at physical therapy. Patient states that he has been urinating more frequently than usual, urine dip showed elevated glucose so serum glucose was checked, his was 108. Patient denies any significant bladder pressure or pain at this time, post void residual was completed by bedside RN, with less than 15 mL in his bladder. Urine microscopy was negative for wbc's, leukocyte esterase, red blood cells, culture is pending. Discussed patient's low back pain and water symptoms, encouraged him to follow-up with a primary care provider if this is ongoing, it could be his BPH. Will follow-up on urine culture, patient was given a lidocaine patch and Tylenol today in the emergency department, he states that he will continue to go to physical therapy for this, understands that there is no signs of infection in his urine currently. He denies any fever, chills, nausea vomiting, fatigue, or other symptom. He does not have any flank pain, denies a history of kidney stones. He was given strict return precautions, No peritoneal signs on abdominal exam. Patient remains p.o. tolerant. Serial abdominal exam without increase in abdominal pain. Given history and exam, low suspicion for acute abdominal process, such as acute cholecystitis, pancreatitis, perforated viscus, atypical appendicitis, colitis, diverticulitis or torsion. Extensive conversation about ER return precautions and need for close follow-up. Multiple etiologies of back pain considered including; Epidural abscess, cauda equina, mass occupying lesion, lumbar fracture, intra-abdominal pathology chronic neuropathic pain and other considered. Patient is appropriate and amenable to discharge home. Vital signs are stable on repeat examination is unremarkable. Patient has been informed of results. Patient has been given strict return to ER precautions for any new or worsening symptoms. Patient understands to follow up closely with outpatient providers as instructed. Patient understands plan and agrees to discharge home. All questions and concerns answered at this time. <Kymberly Andrews, - Last Filed: 12/19/21 18:36> Lab Data Labs: Lab Results 12/11/21 Range/Units 14:22 Urine Color Yellow Urine Appearance Clear Urine pH 5.0 (4.5-8.0) Ur Specific [place] 1.020 (1.000-1.035) Urine Protein Negative (Negative) Urine Glucose (UA) 2+ H (Negative) g/dL Urine Ketones Negative (NEGATIVE) Urine Occult Blood Negative (Negative) Urine Nitrate Negative (Negative) Urine Bilirubin Negative (NEGATIVE) Urine Urobilinogen 0.2 (0.2) E.U./dL Ur Leukocyte Esterase Negative (NEGATIVE) Urine RBC None seen (0-5/HPF) Urine WBC None seen (0-5/HPF) Urine Bacteria None seen (None) Ur Culture Indicated? Cult not indicated Point of Care Testing Glucose POC 101 Urine Dip Bedside Urine Glucose 1000 mg/dl Bedside Urine Bilirubin - Negative Bedside Urine Ketone - Negative Urine Specific [place] 1.025 Bedside Urine Occult Blood - Negative Bedside Urine pH 6.0 Bedside Urine Protein - Negative Bedside Urine Urobilinogen - Negative Bedside Urine Nitrite - Negative Bedside Urine Leukocytes - Negative Esterase Discharge Plan Departure Patient Disposition: Home Clinical Impression: Frequency of urination Instructions: Benign Prostatic Hyperplasia Activity Restrictions/Additional Instructions: *You have been diagnosed with an exacerbation of your low back pain and bladder pressure/urinary frequency. Your urine today does not show any bacteria, white blood cells, or signs of infection. Please continue to monitor your symptoms, stay hydrated make sure you are urinating clear yellow urine throughout the day. If you have any worsening of your bladder pain or develop a fever, nausea, or abdominal pain, please return to the emergency department for another evaluation. We ordered a culture of your urine, if it grows anything, we will call you. Please follow-up with Dr. Jimenez or Dr. Self, whoever is left back at the [facility] office. Please return for any new or worsening symptoms. Please continue to do your PT over the weekend, you may use Tylenol, naproxen, heat, ice and gabapentin for your pain. Thank you for trusting us with your care, I hope you feel better soon *What to do: *Please continue to take your regular medications as directed. [ ] New medication prescriptions sent to your pharmacy: [ ] [ ] New medication written as a paper prescription [ x] No new medications given *Please follow up with your primary care provider in 2-3 days, call for an appointment. Let them know you were seen in the Emergency Department and that we asked that you be seen for follow-up. We will electronically transmit a record of today's note if your PCP is in our system *If you do not have a primary care provider please contact [phone] to establish care with one of [facility] primary care providers. *Return to Emergency Department if you should have any new, worsening or concerning symptoms, such as [fever greater than 101F, chills, worsening pain, persistent vomiting or other bothersome symptoms] Prescriptions: No Action albuterol sulfate 90 mcg/actuation HFA aerosol inhaler 1 inh INHALATION Q4-6H PRN (Reason: shortness of breath) Qty: 18 0RF Lantus U-100 Insulin 100 UNIT/1 ML solution 23 unit SQ QPM Qty: 0 glipizide 10 MG tablet 10 mg PO BIDAC Qty: 0 atenolol 50 mg tablet 50 mg PO DAILY Qty: 0 losartan 50 mg Tablet 50 mg PO DAILY hydrocodone-acetaminophen 5-325 mg tablet 1 tab PO Q4H PRN (Reason: pain) Qty: 20 0RF metformin PO BID (DME) Resmed Airsense 10 CPAP Qty: 1 Label Comments: Pressure: 8-12 cmH2O DME: [facility] Instructions: As directed Referrals: Lizette Paul PA-C [Physician] - Shahnaz Mahmood PA-C [Primary Care Provider] - Radha Jimenez MD [Physician] - Visit Report Forms: Patient Portal/API <Kymberly Andrews DO - Last Filed: 12/19/21 18:36> Cosign ED Attending Caseature Attestation: I was immediately available in the department for consultation. Documentation has been reviewed. I agree with assessment and plan.
[2021-12-11 15:28] LABS: Appearance Urine UA CLEAR; Bilirubin Urine UA NEGATIVE (NEGATIVE); Color Urine UA YELLOW; Glucose Urine UA 2+ g/dL (Negative); Ketones Urine UA NEGATIVE (NEGATIVE); Leukocyte Esterase Urine UA NEGATIVE (NEGATIVE); Nitrite Urine UA NEGATIVE (Negative); Occult Blood Urine UA NEGATIVE (Negative); Protein Urine UA NEGATIVE (Negative); Urobilinogen Urine UA 0.2 E.U./dL (0.2)
[2021-12-11 15:30] LABS: Bacteria Urine None Seen; Culture Indicated Urine Cult Not Indicated; RBC Urine None Seen (0-5/HPF); WBC Urine None Seen (0-5/HPF)
[2021-12-11] MEDS: LIDOCAINE PATCH 1 EACH ADH..PATCH TOP (15:46)
[2021-12-11] MEDS: ACETAMINOPHEN 325 MG TABLET 975 MG PO (15:46)
== END 2021-12-11 15:55 | disposition home or self-care (01) ==
PROVIDERS: Emergency Provider Nurse Practitioner Critical Care Medicine; Family Provider Student in an Organized Health Care Education/Training Program; PCP Student in an Organized Health Care Education/Training Program
DX: R35.0 Frequency of micturition (principal)
CPT/HCPCS: 51798; 81001; 81003; 82962; 87086; 99283

== ENCOUNTER 2022-02-11 15:15 | Outpatient (RCR) | payer OTHER, SELFPAY ==
--- NOTE | 2021-07-08 17:57 | PT.OIE ---
Current Diagnoses Other chronic pain (07/08/21) Ataxic gait (07/08/21) Other abnormalities of gait and mobility (07/08/21) Other lack of coordination (07/08/21) Unspecified lack of coordination (07/08/21) Past Medical History (Last Reviewed 05/28/19 @ 19:21 by Akua Lopez MD) Diabetes History of cholecystectomy History of colonoscopy History of umbilical hernia repair Hyperlipidemia due to type 2 diabetes mellitus Hypertension associated with diabetes Obesity Obstructive sleep apnea of adult (~1994) Personal history of colonic polyps Past Surgical History (Last Reviewed 05/28/19 @ 19:21 by Akua Lopez MD) History of cholecystectomy History of colonoscopy History of umbilical hernia repair Visit Care Team Role Provider Type Shahnaz Mahmood PA-C Family Provider Non-Staff Primary Care Provider Specialty: Internal Medicine Address: [address] [place] [address], [facility] Email: [email or web address] Attending Provider Non-Staff Referring Provider Specialty: Medical Address: [address] [place] [address], [id number], [place], [address] Email: Physical Therapy Initial Evaluation PT-OP-A Visit Information Start: 07/08/21 17:09 Freq: Status: Active Protocol: Document 07/08/21 13:45 DCW (Rec: 07/08/21 17:28 DCW [id number]) Out-Patient Physical Therapy Visit Information Visit Information Visit Type Initial Evaluation Visit Start Time 13:45 Visit Stop Time 14:30 Total Visit Minutes 45 Visit Number 1 Number of VESSEL CAPTAIN Visits 0 Evaluation Information Evaluation Date 07/08/21 PT-OP-B Current Condition Start: 07/08/21 17:09 Freq: Status: Active Protocol: Document 07/08/21 13:45 DCW (Rec: 07/08/21 17:28 DCW [id number]) Current Condition History of Current Condition Onset Date Multi-year history Current Complaints Sensory ataxia, falls, gait difficulty, weakness, decreased proprioception History of Current Condition Pt is a 76 year old male with a complicated medical history presenting with worsening complaints of balance difficulty, declining proprioception, falls, weakness, and pain. 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 Pt reports he has had a number of falls, including two just this weekend when he was trying to take his garbage out to the alley. Pt notes that he has difficulty feeling his feet, found during testing with his neurologist that my proprioception is pretty much gone. 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 Pt has also undergone an MRI which showed severe spinal stenosis at level of left C2-3-4. Treatment Goals Patient/Caregiver Goals I want to be able to bend over, just to do something like tie my shoes, or rub cream on bmy feet. PT-OP-C Subjective Start: 07/08/21 17:09 Freq: Status: Active Protocol: Document 07/08/21 13:45 DCW (Rec: 07/08/21 17:28 DCW [id number]) OP-PT Subjective Patient Comments Patient Comments I just got no proprioception. Patient Reported Progress Worse Patient Questionnaires ABC- Activity Specific Balance Confidence Scale ABC Score 39.38% ABC Functional Impairment 60 to <80% Impaired (Score 21- 40) OP-PT Pain Assessment Pain Assessment Grid Paper Pain Assessment Grid Completed Yes: See scan PT-OP-D Balance Start: 07/08/21 17:09 Freq: Status: Active Protocol: Document 07/08/21 13:45 DCW (Rec: 07/08/21 17:34 DCW [id number]) OP-PT Balance Assessment Sitting Balance Static Sitting Balance Ability Normal Dynamic Sitting Balance Ability Good Standing Balance Static Standing Balance Ability Fair Dynamic Standing Balance Ability Poor Balance Tests Hansen Balance Test Hansen Balance Test Score 23/56 Hansen Impairment Rating 40 to 59% Impaired (Score 23- 33) Hansen Balance Assessment Evaluation Sitting to Standing Ability Independent w/Hands Unsupported Stance 30 seconds Sitting Unsupported, Feet on Floor Safely- 2 minutes Standing to Sitting Ability Independent, Uncontrolled Transfer Ability Supervision, Verbal Cues Unsupported Stance- Eyes Closed 3 seconds Unsupported Stance- Eyes Open Independent, <30 seconds Reaching Forward Standing Safely, 2 inches Pick- Up Object From Floor Requires Assistance Look Behind Shoulder - Standing Supervision w/Turning Turning 360 Degrees Supervision/Verbal Cues Unsupported Stance, Alternating Feet on 4 Steps w/Supervision Stair Unsupported Tandem Stance Balance Lost- Step/Stand Unilateral Leg Stance Lifts Leg/Unable to Hold Total Score Hansen Total Score (out of 56 points) 23 Hansen Impairment Rating 40 to 59% Impaired (Score 23- 33) Dias Fall Scale Copyright Permission PT-OP-G Mobility & Gait Start: 07/08/21 17:09 Freq: Status: Active Protocol: Document 07/08/21 13:45 DCW (Rec: 07/08/21 17:34 DCW [id number]) OP Gait Assessment Gait Gait Assistance Required: Standby Assistance Distance (Feet) 100 Assistive Devices Assistive Device None Gait Deviations General Gait Pattern Ataxic,Decreased Feet Clearance,Flexed Trunk,Lateral Trunk Lean,Wide Based Gait Factors Limiting Gait Function Factors Limiting Gait Function Decreased Activity Tolerance, Decreased Sensation,Decreased Strength,Poor Balance,Poor Safety Awareness Comments Gait Comments Pt ambulates with moderate gait ataxia, wide DEYANIRA, slight resistance to assistive device use at this time. PT-OP-H Neuro Start: 07/08/21 17:53 Freq: Status: Active Protocol: Document 07/08/21 13:45 DCW (Rec: 07/08/21 17:57 DCW [id number]) Sensation Evaluation Gross Sensation Gross Sensation Left LE Impaired,Right LE Impaired Location Details Right Second Toe Light Touch Absent Sharp/Dull Impaired Deep Pressure Impaired Protective Sensation Absent Proprioception (Position) Impaired Right Great Toe Light Touch Absent Sharp/Dull Impaired Deep Pressure Impaired Protective Sensation Absent Proprioception (Position) Impaired Left Foot Light Touch Absent Sharp/Dull Impaired Deep Pressure Impaired Protective Sensation Absent Proprioception (Position) Impaired Comments Summary Comments Left foot distal to mid-arch, right great and second toe all absent protective sensation. The rest of both feet diminished sensation PT-OP-M Strength Start: 07/08/21 17:09 Freq: Status: Active Protocol: Document 07/08/21 13:45 DCW (Rec: 07/08/21 17:34 DCW [id number]) Hip Strength Hip Manual Muscle Testing Right Flexion (L2) 3 Fair Abduction 3 Fair Adduction 3 Fair External Rotation 3 Fair Internal Rotation 3 Fair Left Flexion (L2) 3 Fair Abduction 3 Fair Adduction 3 Fair External Rotation 3 Fair Internal Rotation 3 Fair Knee Strength Knee Manual Muscle Testing Right Flexion (S2) 3 Fair Extension (L3) 3 Fair Left Flexion (S2) 3 Fair Extension (L3) 3 Fair Ankle/Foot Strength Ankle and Foot Manual Muscle Testing Right Dorsiflexion (L4) 3 Fair Plantarflexion (S1) 3 Fair Left Dorsiflexion (L4) 3 Fair Plantarflexion (S1) 3 Fair PT-OP-O Vestibular Start: 07/08/21 17:09 Freq: Status: Active Protocol: Document 07/08/21 13:45 DCW (Rec: 07/08/21 17:34 DCW [id number]) Vestibular Assessment Visual Testing Smooth Pursuits Horizontal Corrective saccades Smooth Pursuits Vertical Corrective saccades PT-OP-T Assessment and Plan Start: 07/08/21 17:09 Freq: Status: Active Protocol: Document 07/08/21 13:45 DCW (Rec: 07/08/21 17:52 DCW [id number]) Physical Therapy Assessment Rehab Potential Rehabilitation Potential Fair Evaluation Complexity Number of Personal Factors/Comorbidities 3 or More Number of Body Systems Impaired 4 or More Clinical Presentation at Evaluation Unstable Impairments Impairments Activity Tolerance,Balance, Coordination,Functional Activities,Functional Mobility ,Gait,Pain,Sensation,Soft Tissue Mobility,Strength,Tone, Vestibular,Visual Motor Other Concerns Fall Risk High falls risk, Hansen Score 23 /56, Repeated fall history Goals Four Impairment Pt does not have an appropriate home exercise program Short Term Goal (STG) Pt to be independent and compliant with an appropriate HEP STG Duration 08/08/21 Three Impairment Hansen score of 23/56 [facility] Goal (LTG) Pt to score increased Hansen score by at least 7 points to 30/56 to exhibit decreasing falls risk. LTG Duration 10/06/21 Two Impairment Significant lower extremity weakness in all planes Short Term Goal (STG) Pt to increase LE MMT to at least 3+/5 STG Duration 08/08/21 [employer] Sales Executive Goal (LTG) Pt to improve B LE MMT in all planes to at least 4/5 to exhibit improved ability to perform transfers and bed mobility. LTG Duration 10/06/21 One Impairment Pt ambulates at a high falls risk with no assistive device Short Term Goal (STG) Pt to lower falls risk with use of personal walking stick or cane 80% of the time when outside of his home. STG Duration 08/08/21 Assessment Summary Assessment Pt presents with a complicated history and signs of neurological dysfunction. Pt has decreased sensory input in bilateral feet, with absent protective sensation on left foot from mid-arch distal to toes, and on the first and second toes on his right foot. Decreased proprioception bilaterally in feet in ankles creates decreased balance and an increased risk of falling. Pt's LE strength is enough to move in full ROM against gravity, however pt is unable to maintain with any resistance. Pt's gait pattern is negatively affected, resulting in ataxic movements and a very wide base of support. Additionally, pt exhibits saccadic movements during smooth pursuit, and complains that he feels his vision can't keep up with his movements. Discussed with pt importance for him to use a walking stick at the very least to improve stability and decrease risk of falling, and pt seemed receptive of this suggestion. Also discussed need for thorough daily skin checks on his feet due to loss of protective sensation. Pt should benefit from skilled therapy focusing on Neuromuscular reeducation, Balance and gait training, strengthening, vision exercises, and patient education for safety. Physical Therapy Plan Frequency and Duration Frequency of Treatment 2x/Week Duration of Treatment Three months Plan of Care Start Date 07/08/21 Plan of Care End Date 10/06/21 Therapeutic Interventions Therapeutic Interventions Aquatic Therapy,Balance Training,Coordination Training ,Gait Training,Home Exercise Program,Joint Mobilizations, Manual Therapy,Neuromuscular Re-education,Patient/Caregiver Education,Self-Care/Home Management,Sensory Integration ,Soft Tissue Mobilization, Therapeutic Activities, Therapeutic Exercises, Vestibular Rehabilitation Next Visit Focus/Plan Next Note Type Treatment Note Next Visit Plan TUG, 2MWT, DGI, LE strengthening, NMR, Gait training
--- NOTE | 2021-07-08 17:58 | PT.OPPOC ---
Physical, Occupational & Speech Therapy At [facility] Current Diagnoses Other chronic pain (07/08/21) Ataxic gait (07/08/21) Other abnormalities of gait and mobility (07/08/21) Other lack of coordination (07/08/21) Unspecified lack of coordination (07/08/21) Visit Care Team Role Provider Type Shahnaz Mahmood PA-C Family Provider Non-Staff Primary Care Provider Specialty: Internal Medicine Address: [address] [place] [address], [facility] Email: [email or web address] CHE[place] Attending Provider Non-Staff Referring Provider Specialty: Medical Address: [address] [place] [address], [id number], [place], [address] Email: Plan Of Care PT-OP-T Assessment and Plan Start: 07/08/21 17:09 Freq: Status: Active Protocol: Document 07/08/21 13:45 DCW (Rec: 07/08/21 17:52 DCW [id number]) Physical Therapy Assessment Rehab Potential Rehabilitation Potential Fair Evaluation Complexity Number of Personal Factors/Comorbidities 3 or More Number of Body Systems Impaired 4 or More Clinical Presentation at Evaluation Unstable Impairments Impairments Activity Tolerance,Balance, Coordination,Functional Activities,Functional Mobility ,Gait,Pain,Sensation,Soft Tissue Mobility,Strength,Tone, Vestibular,Visual Motor Other Concerns Fall Risk High falls risk, Hansen Score 23 /56, Repeated fall history Goals Four Impairment Pt does not have an appropriate home exercise program Short Term Goal (STG) Pt to be independent and compliant with an appropriate HEP STG Duration 08/08/21 Three Impairment Hansen score of 23/56 [facility] Goal (LTG) Pt to score increased Hansen score by at least 7 points to 30/56 to exhibit decreasing falls risk. LTG Duration 10/06/21 Two Impairment Significant lower extremity weakness in all planes Short Term Goal (STG) Pt to increase LE MMT to at least 3+/5 STG Duration 08/08/21 [facility] Goal (LTG) Pt to improve B LE MMT in all planes to at least 4/5 to exhibit improved ability to perform transfers and bed mobility. LTG Duration 10/06/21 One Impairment Pt ambulates at a high falls risk with no assistive device Short Term Goal (STG) Pt to lower falls risk with use of personal walking stick or cane 80% of the time when outside of his home. STG Duration 08/08/21 Assessment Summary Assessment Pt presents with a complicated history and signs of neurological dysfunction. Pt has decreased sensory input in bilateral feet, with absent protective sensation on left foot from mid-arch distal to toes, and on the first and second toes on his right foot. Decreased proprioception bilaterally in feet in ankles creates decreased balance and an increased risk of falling. Pt's LE strength is enough to move in full ROM against gravity, however pt is unable to maintain with any resistance. Pt's gait pattern is negatively affected, resulting in ataxic movements and a very wide base of support. Additionally, pt exhibits saccadic movements during smooth pursuit, and complains that he feels his vision can't keep up with his movements. Discussed with pt importance for him to use a walking stick at the very least to improve stability and decrease risk of falling, and pt seemed receptive of this suggestion. Also discussed need for thorough daily skin checks on his feet due to loss of protective sensation. Pt should benefit from skilled therapy focusing on Neuromuscular reeducation, Balance and gait training, strengthening, vision exercises, and patient education for safety. Physical Therapy Plan Frequency and Duration Frequency of Treatment 2x/Week Duration of Treatment Three months Plan of Care Start Date 07/08/21 Plan of Care End Date 10/06/21 Therapeutic Interventions Therapeutic Interventions Aquatic Therapy,Balance Training,Coordination Training ,Gait Training,Home Exercise Program,Joint Mobilizations, Manual Therapy,Neuromuscular Re-education,Patient/Caregiver Education,Self-Care/Home Management,Sensory Integration ,Soft Tissue Mobilization, Therapeutic Activities, Therapeutic Exercises, Vestibular Rehabilitation Next Visit Focus/Plan Next Note Type Treatment Note Next Visit Plan TUG, 2MWT, DGI, LE strengthening, NMR, Gait training Plan of Care Dates Plan of Care Start Date 07/08/21 Plan of Care End Date 10/06/21 Electronically Signed by: Suleiman Singh, PT 07/08/21 [id number] Please Sign and Return: I have reviewed this Plan of Care and certify that the skilled therapy services above are required to meet the patient?s needs. Physician Signature Date Printed Name and Credentials Clinical Instructor Signature Printed Name and Credentials
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
--- NOTE | 2021-10-05 17:01 | PT.OPPOC ---
Physical, Occupational & Speech Therapy At [facility] Current Diagnoses Other chronic pain (10/05/21) Ataxic gait (10/05/21) Other abnormalities of gait and mobility (10/05/21) Other lack of coordination (10/05/21) Unspecified lack of coordination (10/05/21) Visit Care Team Role Provider Type Shahnaz Mahmood PA-C Family Provider Non-Staff Primary Care Provider Specialty: Internal Medicine Address: [address] [place] [address], [place] Email: [email or web address] Attending Provider Non-Staff Referring Provider Specialty: Medical Address: [address] [place] [address], [id number], [address] Email: Plan Of Care PT-OP-T Assessment and Plan Start: 07/08/21 17:09 Freq: Status: Active Protocol: Document 10/05/21 14:30 DCW (Rec: 10/05/21 17:00 DCW [id number]) Physical Therapy Assessment Impairments Impairments Activity Tolerance,Balance, Coordination,Functional Activities,Functional Mobility ,Gait,Pain,Sensation,Soft Tissue Mobility,Strength,Tone, Vestibular,Visual Motor Goals Four Impairment Pt does not have an appropriate home exercise program Short Term Goal (STG) Pt to be independent and compliant with an appropriate HEP STG Duration 08/08/21 Three Impairment Hansen score of 23/56 Short Term Goal (STG) Pt to score increased Hansen score by at least 7 points to 30/56 to exhibit decreasing falls risk. STG Duration Met (35/56) Chief Dispatcher Goal (LTG) Pt to score increased Hansen score by at least 7 points to 42/56 to exhibit decreasing falls risk. LTG Duration 01/03/22 Two Impairment Significant lower extremity weakness in all planes Short Term Goal (STG) Pt to increase LE MMT to at least 3+/5 STG Duration 08/08/21 Chief Dispatcher Goal (LTG) Pt to improve B LE MMT in all planes to at least 4/5 to exhibit improved ability to perform transfers and bed mobility. LTG Duration 01/03/22 One Impairment Pt ambulates at a high falls risk with no assistive device Short Term Goal (STG) Pt to lower falls risk with use of personal walking stick or cane 80% of the time when outside of his home. STG Duration Met Assessment Summary Assessment Pt testing today showed some good overall progress in improving balance and decreasing falls risk. TUG score improved by 4 seconds, DGI score increased 3 points, and Hansen Balance Score increased from 23/56 to 35/56. Pt demonstrating some improvement with gait and activity tolerance. Also noted that after a fall yesterday and speaking with his neurologist today, he has been convinced to use his cane more frequently, and to not let it embarrass him. Continued therapy to improve LE strength, balance, and gait to decrease falls risk indicated. Physical Therapy Plan Frequency and Duration Frequency of Treatment 2x/Week Duration of Treatment Three months Plan of Care Start Date 10/05/21 Plan of Care End Date 01/03/22 Therapeutic Interventions Therapeutic Interventions Aquatic Therapy,Balance Training,Coordination Training ,Gait Training,Home Exercise Program,Joint Mobilizations, Manual Therapy,Neuromuscular Re-education,Patient/Caregiver Education,Self-Care/Home Management,Sensory Integration ,Soft Tissue Mobilization, Therapeutic Activities, Therapeutic Exercises, Vestibular Rehabilitation Next Visit Focus/Plan Next Note Type Treatment Note Next Visit Plan LE strengthening, NMR, Gait training Plan of Care Dates Plan of Care Start Date 10/05/21 Plan of Care End Date 01/03/22 Electronically Signed by: Suleiman Singh, PT 10/05/21 [id number] Please Sign and Return: I have reviewed this Plan of Care and certify that the skilled therapy services above are required to meet the patient?s needs. Physician Signature Date Printed Name and Credentials Clinical Instructor Signature Printed Name and Credentials
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
--- NOTE | 2021-10-12 14:52 | PT-OP ANOTE ---
Pt no-showed to 10/12/21 appointment. Left voicemail reminding pt of next scheduled visit.
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
--- NOTE | 2022-01-05 12:03 | PT.OPPOC ---
Physical, Occupational & Speech Therapy At [facility] Current Diagnoses Other chronic pain (01/05/22) Other abnormalities of gait and mobility (01/05/22) Other lack of coordination (01/05/22) Unspecified lack of coordination (01/05/22) Visit Care Team Role Provider Type Shahnaz Mahmood PA-C Family Provider Non-Staff Primary Care Provider Specialty: Internal Medicine Address: [address] [place] [address], [facility] Email: [email or web address] Attending Provider Non-Staff Referring Provider Specialty: Medical Address: [address] [place] [address], [id number], [place], [address] Email: Plan Of Care PT-OP-T Assessment and Plan Start: 07/08/21 17:09 Freq: Status: Active Protocol: Document 01/05/22 11:15 DCW (Rec: 01/05/22 12:02 DCW [id number]) Physical Therapy Assessment Goals Four Impairment Pt does not have an appropriate home exercise program Short Term Goal (STG) Pt to be independent and compliant with an appropriate HEP STG Duration Met Three Impairment Hansen score of 23/56 Short Term Goal (STG) Pt to score increased Hansen score by at least 7 points to 30/56 to exhibit decreasing falls risk. STG Duration Met (35/56) Blue Line Operator Goal (LTG) Pt to score increased Hansen score by at least 7 points to 42/56 to exhibit decreasing falls risk. LTG Duration 03/08/22 Two Impairment Significant lower extremity weakness in all planes Short Term Goal (STG) Pt to increase LE MMT to at least 3+/5 STG Duration Met Halfway Goal (LTG) Pt to improve B LE MMT in all planes to at least 4/5 to exhibit improved ability to perform transfers and bed mobility. LTG Duration 03/08/22 - Improving One Impairment Pt ambulates at a high falls risk with no assistive device Short Term Goal (STG) Pt to lower falls risk with use of personal walking stick or cane 80% of the time when outside of his home. STG Duration Met Assessment Summary Assessment MMT shows significant improvement since initial eval , pt has also improved TUG score from 21.5->17.36->12.2 without use of AD. Hansen continues to be a struggle, although up from initial eval, no change from last reassessment. Continued skilled therapy indicated for improved balance, gait, activity tolerance, and floor transfers/bed mobility. Physical Therapy Plan Frequency and Duration Frequency of Treatment 2x/Week Duration of Treatment 90 days Plan of Care Start Date 01/05/22 Plan of Care End Date 04/05/22 Therapeutic Interventions Therapeutic Interventions Aquatic Therapy,Balance Training,Coordination Training ,Gait Training,Home Exercise Program,Joint Mobilizations, Manual Therapy,Neuromuscular Re-education,Patient/Caregiver Education,Self-Care/Home Management,Sensory Integration ,Soft Tissue Mobilization, Therapeutic Activities, Therapeutic Exercises, Vestibular Rehabilitation Next Visit Focus/Plan Next Note Type Treatment Note Next Visit Plan Recheck on/off floor, STS and LE and core strengthening to improve functional mobility. POC: LE strengthening, NMR, Gait training Plan of Care Dates Plan of Care Start Date 01/05/22 Plan of Care End Date 04/05/22 Electronically Signed by: Suleiman Singh, PT 01/05/22 [id number] If you are in agreement with this Plan of Care, please return a signed and dated copy. I have reviewed this Plan of Care and certify that the skilled therapy services above are required to meet the patient?s needs. Physician Signature Date Printed Name and Credentials Clinical Instructor Signature Printed Name and Credentials
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
--- NOTE | 2022-03-18 11:43 | PT-OP ANOTE ---
Pt called and cancelled today's appt due to having medical testing and suggested to discontinue PT at this time and at this time doesn't have anymore authorized visits from [facility]. [facility]ER called to follow up with pt on course of action with PT going forward. Pt stated when medical testing is complete and has approval to return to therapy will call for new referral from [facility] and schedule to be reevaluated. He stated feels PT does help but at this time in a holding pattern and need to find out what is wrong. SWAGE TENDER will notify PT Roger to complete DC.
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
== END 2022-03-19 08:12 ==
LOC: PHYS 15:15
PROVIDERS: Family Provider Student in an Organized Health Care Education/Training Program; PCP Student in an Organized Health Care Education/Training Program; Referring Provider Nurse Practitioner Family; Visit Provider Nurse Practitioner Family
DX: R27.9 Unspecified lack of coordination (principal); R27.8 Other lack of coordination; G89.29 Other chronic pain; R26.89 Other abnormalities of gait and mobility
CPT/HCPCS: 97010; 97110; 97112; 97140; 97163; 97530

== ENCOUNTER 2022-02-17 08:30 | Outpatient (RCR) | payer OTHER, SELFPAY | END 2022-02-17 10:30 | LOC: PUL 08:30 | PROVIDERS: Family Provider Student in an Organized Health Care Education/Training Program; PCP Student in an Organized Health Care Education/Training Program; Referring Provider Nurse Practitioner Family; Visit Provider Nurse Practitioner Family | DX: J44.9 Chronic obstructive pulmonary disease, unspecified (principal) | CPT/HCPCS: 94625; 94626; G0237; G0238 ==

== ENCOUNTER 2022-02-18 05:58 | Emergency (ER) | payer MEDICARE, OTHER, SELFPAY ==
[2022-02-18 06:05] VITALS: BP 167/85; PULSE 60; RESP 18; TEMP 36.7; O2SAT 99; BMI 33.6
--- NOTE | 2022-02-18 06:27 | DI.CT.S_ITS ---
PROCEDURE: CT KIDNEY URETER BLADDER (KUB) INDICATIONS: rt side pain TECHNIQUE: Axial sections were acquired from the lung bases to the pubic symphysis. Coronal and sagittal reformats were performed. For radiation dose reduction, the following was used: automated exposure control, adjustment of mA and/or kV according to patient size. COMPARISON: [facility], CT, KIDNEY/ URETER/BLADDER, 08/03/2010, 13:37. FINDINGS: Image quality: Excellent. Lung bases: Unremarkable. Heart: No significant findings. URINARY: Right Kidney: No stones or hydronephrosis. Right Ureter: No hydroureter. Left Kidney: No stones or hydronephrosis. Low-density cystic lesions are visualized within the renal cortex. Left Ureter: No hydroureter. Bladder: Normal wall thickness. No stones. ABDOMEN: Liver: Unremarkable. Gallbladder: Surgically absent. Biliary ducts: Unremarkable. Pancreas: Punctate calcifications are present throughout the pancreas suggesting prior, now resolved pancreatitis. Spleen: Unremarkable. Adrenal Glands: Unremarkable. Stomach and Bowel: Stomach, small bowel loops, and colon are unremarkable. The appendix is thin walled and gas filled. There are scattered sigmoid diverticula. No evidence for diverticulitis. Peritoneum: No abnormal intraperitoneal fluid. No free air. Ventral Wall: No hernia. Abdominal Nodes: No enlarged retroperitoneal or mesenteric lymph nodes. There is incidentally noted mild fat stranding at the mesenteric root. Vessels: Aorta and inferior vena cava are normal in size. There are scattered atheromatous calcifications throughout the aorta and iliac arteries bilaterally. PELVIS: Pelvic Organs: Unremarkable. Pelvic Nodes: Unremarkable. Miscellaneous: There is a moderate size left fat containing inguinal hernia. Bones: Unremarkable. IMPRESSION: 1. No hydronephrosis, nephrolithiasis, hydroureter, or ureterolithiasis. 2. No acute intra-abdominal findings. Normal appendix. Diverticulosis. No acute diverticulitis. 3. Mild haziness of the mesenteric root which is a nonspecific finding, but can be associated mesenteric panniculitis. Dictated by: Joellen Carpenter M.D. on 02/18/2022 at 8:13 Approved by: Joellen Carpenter M.D. on 02/18/2022 at 8:25
--- NOTE | 2022-02-18 06:28 | ED.ABDPAIN ---
HPI - Abdominal Pain <Quincy Grande MD - Last Filed: 02/24/22 18:10> General Chief Complaint: Abdominal Pain Stated Complaint: lower abd pain right side Time Seen by Provider: 02/18/22 06:19 Source: patient Mode of arrival: Ambulatory History of Present Illness HPI narrative: Patient here for right lower quadrant pain radiating to the groin, off and on for the past 2 days. Sometimes sharp sometimes pressure. Nausea but no vomiting. No diarrhea. No dysuria. No fever or chills. No back pain with this. Patient has history of cholecystectomy. No history of kidney stones Related Data Home Medications Medication Instructions Recorded Confirmed glipizide 10 mg tablet 10 mg PO BIDAC ##0 09/23/17 03/13/19 insulin glargine 100 unit/mL 23 unit SQ QPM ##0 09/23/17 03/13/19 subcutaneous solution (Lantus U-100 Insulin) losartan 50 mg tablet 50 mg PO DAILY 09/04/18 03/13/19 Resmed Airsense 10 CPAP #1 ea 03/13/19 03/13/19 atenolol 50 mg tablet 50 mg PO DAILY #0 tabs 03/13/19 03/13/19 metformin PO BID 03/13/19 03/13/19 Previous Rx's Medication Instructions Recorded albuterol sulfate 90 mcg/actuation 1 inh inhalation Q4-6H PRN 01/13/19 aerosol inhaler shortness of breath #18 grams hydrocodone 5 mg-acetaminophen 325 1 tab PO Q4H PRN pain #20 tabs 05/21/19 mg tablet ondansetron 4 mg disintegrating 4 mg PO Q8H PRN nausea and 02/18/22 tablet vomiting #10 tabs bisacodyl 10 mg rectal suppository 10 mg SD DAILY PRN constipation 02/24/22 #12 ea ciprofloxacin HCl 500 mg tablet 500 mg PO BID 9 days #18 tabs 02/24/22 methocarbamol 500 mg tablet 500 mg PO TID #14 tabs 02/24/22 naproxen 375 mg tablet 375 mg PO BID PRN pain #14 tabs 02/24/22 polyethylene glycol 3350 17 17 g PO DAILY for soft stool #238 02/24/22 gram/dose oral powder (Miralax) grams Allergies Allergy/AdvReac Type Severity Reaction Status Date / Time Iodine and Iodide Containing Allergy Severe Anaphylaxis Verified 02/24/22 10:52 Produc [IODINE AND IODIDE CONTAINING PRODUC] Sulfa (Sulfonamide Allergy Severe My eyes Verified 02/24/22 10:52 Antibiotics) close up [SULFA (SULFONAMIDE and my ANTIBIOTICS)] face gets puffy Review of Systems <Quincy Grande MD - Last Filed: 02/24/22 18:10> Review of Systems Narrative: GENERAL: Denies chills, fatigue, malaise, fever, sweats. HEENT: Denies sinus pain, ear pain, sore throat RESPIRATORY: Denies dyspnea, cough CARDIOVASCULAR: Denies chest pain, palpitations GASTROINTESTINAL: Positive nausea, negative vomiting, positive abdominal pain : Denies dysuria, frequency, hematuria MUSCULOSKELETAL: denies muscle or bony pain SKIN: Denies rash, skin lesions NEUROLOGIC: Denies weakness, numbness ROS Unobtainable: All systems reviewed & are unremarkable except as noted in HPI and below Patient History <Quincy Grande MD - Last Filed: 02/24/22 18:10> Medical History (Updated 02/24/22 @ 16:15 by CHELY Raymond) Diabetes Hyperlipidemia due to type 2 diabetes mellitus Hypertension associated with diabetes Obesity Obstructive sleep apnea of adult (~1994) Personal history of colonic polyps Surgical History History of cholecystectomy History of colonoscopy History of umbilical hernia repair Social History marital status: household members: spouse Smoking Status: Former smoker Smoking Status: Former smoker alcohol intake frequency: holidays/special occasions only Substance Use Type: does not use Exam <Quincy Grande MD - Last Filed: 02/24/22 18:10> Narrative Exam Narrative: GENERAL: in no distress, not toxic not dyspneic HEAD: Normocephalic. EYES: Pupils equal round No scleral icterus. NECK: Trachea midline. CARDIOVASCULAR: Regular rate and rhythm without murmurs RESPIRATORY: Clear to auscultation. Breath sounds equal bilaterally. No wheezes, rales, or rhonchi. GASTROINTESTINAL: Abdomen soft, it is distended, reproducible right lower quadrant tenderness diffusely. No peritoneal signs. Bowel sounds are present. EXTREMITIES: No gross deformities. NEURO: AOx4. SKIN: Warm and dry PSYCH: Not anxious, is cooperative Initial Vital Signs Initial Vital Signs: Vital Signs Temperature 98.1 F 02/18/22 06:05 Pulse Rate 60 02/18/22 06:05 Respiratory Rate 18 02/18/22 06:05 Blood Pressure 167/85 H 02/18/22 06:05 Pulse Oximetry 99 02/18/22 06:05 Oxygen Delivery Method 02/18/22 06:05 <Kymberly Andrews DO - Last Filed: 02/18/22 08:16> Initial Vital Signs Initial Vital Signs: Vital Signs Temperature 98.1 F 02/18/22 06:05 Pulse Rate 60 02/18/22 06:05 Respiratory Rate 18 02/18/22 06:05 Blood Pressure 167/85 H 02/18/22 06:05 Pulse Oximetry 99 02/18/22 06:05 Oxygen Delivery Method 02/18/22 06:05 Course <Quincy Grande MD - Last Filed: 02/24/22 18:10> Course Course Narrative: 7:00 a.m.. Sign out to Dr. Andrews, labs and imaging studies are pending. Orders Ordered: ED Orders 02/18/22 06:07 COVID19 -Nasal RAPID/Pre-Proc Stat 02/18/22 06:19 Complete Blood Count AUTO DIFF Stat Comprehensive Metabolic Panel Stat Lipase Stat 02/18/22 06:27 CT kidney ureter bladder (KUB) Stat Vital Signs Vital signs: Vital Signs - 8 hr 02/18/22 06:05 02/18/22 07:47 Temperature 98.1 F Pulse Rate 60 55 L Respiratory Rate 18 16 Blood Pressure 167/85 H 149/80 H Pulse Oximetry 99 98 Oxygen Delivery Method Room Air Room Air <Kymberly Andrews DO - Last Filed: 02/18/22 08:16> Orders Ordered: ED Orders 02/18/22 06:07 COVID19 -Nasal RAPID/Pre-Proc Stat 02/18/22 06:19 Complete Blood Count AUTO DIFF Stat Comprehensive Metabolic Panel Stat Lipase Stat 02/18/22 06:27 CT kidney ureter bladder (KUB) Stat Vital Signs Vital signs: Vital Signs - 8 hr 02/18/22 06:05 02/18/22 07:47 Temperature 98.1 F Pulse Rate 60 55 L Respiratory Rate 18 16 Blood Pressure 167/85 H 149/80 H Pulse Oximetry 99 98 Oxygen Delivery Method Room Air Room Air MDM - Abdominal Pain <Quincy Grande MD - Last Filed: 02/24/22 18:10> Lab Data Result diagrams: 02/18/22 06:19 02/18/22 06:19 Labs: Lab Results 02/18/22 02/18/22 02/18/22 Range/Units 06:07 06:19 06:19 WBC 7.3 (4.5-11.0) X10^3/uL RBC 4.86 (4.5-5.9) X10^6/uL Hgb 15.9 (13.5-17.5) g/dL Hct 45.9 (41-53) % MCV 94.5 (80-100) fL MCH 32.8 (26-34) PG MCHC 34.7 (30-36) % RDW 13.9 (11.6-14.8) % Plt Count 160 (150-400) X10^3/uL Neut % (Auto) 58.1 (50-75) % Lymph % (Auto) 24.3 L (25-40) % [place] % (Auto) 10.7 (3-14) % Eos % (Auto) 6.5 H (2-4) % Baso % (Auto) 0.4 (0-2) % Neut # (Auto) 4200 (0394-4569) /uL Lymph # (Auto) 1800 (6002-4467) /uL [place] # (Auto) 800 (0-900) /uL Eos # (Auto) 500 H (0-450) /uL Baso # (Auto) 0 (0-100) /uL Sodium 140 (137-145) mmol/L Potassium 4.0 (3.4-5.1) mmol/L Chloride 103 (98-107) mmol/L Carbon Dioxide 27 (22-32) mmol/L BUN 16 (9-20) mg/dL Creatinine 0.77 (0.66-1.25) mg/dL Estimated GFR > 60 (>60) mL/min BUN/Creatinine Ratio 20.8 (6-22) Glucose 185 H (80-110) mg/dL Calcium 9.3 (8.4-10.2) mg/dL Total Bilirubin 0.7 (0.2-1.3) mg/dL AST 27 (17-59) IU/L ALT 33 (<50) IU/L Alkaline Phosphatase 62 (38-126) U/L Total Protein 8.0 (6.3-8.2) g/dL Albumin 4.3 (3.5-5.0) g/dL Globulin 3.7 (1.7-4.1) g/dL Albumin/Globulin Ratio 1.2 (1.0-2.8) Lipase 112 (23-300) U/L SARS-CoV-2 (PCR) Negative (Negative) Point of care testing: Urine Dip Bedside Urine Glucose 1000 mg/dl Bedside Urine Bilirubin - Negative Bedside Urine Ketone - Negative Urine Specific [place] 1.020 Bedside Urine Occult Blood - Negative Bedside Urine pH 6.0 Bedside Urine Protein - Negative Bedside Urine Urobilinogen 0.2 Bedside Urine Nitrite - Negative Bedside Urine Leukocytes - Negative Esterase <Kymberly Andrews, DO - Last Filed: 02/18/22 08:16> Lab Data Labs: Lab Results 02/18/22 02/18/22 02/18/22 Range/Units 06:07 06:19 06:19 WBC 7.3 (4.5-11.0) X10^3/uL RBC 4.86 (4.5-5.9) X10^6/uL Hgb 15.9 (13.5-17.5) g/dL Hct 45.9 (41-53) % MCV 94.5 (80-100) fL MCH 32.8 (26-34) PG MCHC 34.7 (30-36) % RDW 13.9 (11.6-14.8) % Plt Count 160 (150-400) X10^3/uL Neut % (Auto) 58.1 (50-75) % Lymph % (Auto) 24.3 L (25-40) % [place] % (Auto) 10.7 (3-14) % Eos % (Auto) 6.5 H (2-4) % Baso % (Auto) 0.4 (0-2) % Neut # (Auto) 4200 (6722-0063) /uL Lymph # (Auto) 1800 (2899-2598) /uL [place] # (Auto) 800 (0-900) /uL Eos # (Auto) 500 H (0-450) /uL Baso # (Auto) 0 (0-100) /uL Sodium 140 (137-145) mmol/L Potassium 4.0 (3.4-5.1) mmol/L Chloride 103 (98-107) mmol/L Carbon Dioxide 27 (22-32) mmol/L BUN 16 (9-20) mg/dL Creatinine 0.77 (0.66-1.25) mg/dL Estimated GFR > 60 (>60) mL/min BUN/Creatinine Ratio 20.8 (6-22) Glucose 185 H (80-110) mg/dL Calcium 9.3 (8.4-10.2) mg/dL Total Bilirubin 0.7 (0.2-1.3) mg/dL AST 27 (17-59) IU/L ALT 33 (<50) IU/L Alkaline Phosphatase 62 (38-126) U/L Total Protein 8.0 (6.3-8.2) g/dL Albumin 4.3 (3.5-5.0) g/dL Globulin 3.7 (1.7-4.1) g/dL Albumin/Globulin Ratio 1.2 (1.0-2.8) Lipase 112 (23-300) U/L SARS-CoV-2 (PCR) Negative (Negative) Point of care testing: Urine Dip Bedside Urine Glucose 1000 mg/dl Bedside Urine Bilirubin - Negative Bedside Urine Ketone - Negative Urine Specific [place] 1.020 Bedside Urine Occult Blood - Negative Bedside Urine pH 6.0 Bedside Urine Protein - Negative Bedside Urine Urobilinogen 0.2 Bedside Urine Nitrite - Negative Bedside Urine Leukocytes - Negative Esterase Imaging Data CT scan - abdomen/pelvis: Radiologist's Impression: Preliminary report: No acute findings in abdomen or pelvis. Sigmoid diverticulosis. Large process. No evidence of hernia no acute abnormality MDM Narrative Medical decision making narrative: Patient is signed out to me by Dr. Grande I have seen and evaluated patient myself patient has been having right lower quadrant pain ongoing for about the last 2 days. He says it comes and goes kind of radiating. Blood work is overall reassuring CT is negative. At this time he says he takes naproxen at home if needed for pain. Offered Zofran it which he will take at home. Discharge Plan Departure Patient Disposition: Home Clinical Impression: Abdominal pain Instructions: DI for Abdominal Pain-Adult Activity Restrictions/Additional Instructions: *You have been diagnosed with abdominal pain *What to do: At this time her blood work CT scans do not show any abnormality. Hopefully her pain starts to improve. However if it is not please return to the ED *Continue to take medications as directed Naproxen 500 mg every 12 hours if needed for [id number] pain Tylenol 1000 mg every 6 hours if needed for [id number] pain Zofran 4 mg every 8 hours if needed for nausea or vomiting --> SENT TO [facility] *Follow up with your primary care provider in 2-3 days or call [phone] *Return to ER if you should have increasing pain fever persistent vomiting or any new, worsening or concerning symptoms Prescriptions: New ondansetron 4 mg tablet,disintegrating 4 mg PO Q8H PRN (Reason: nausea and vomiting) Qty: 10 0RF No Action albuterol sulfate 90 mcg/actuation HFA aerosol inhaler 1 inh INHALATION Q4-6H PRN (Reason: shortness of breath) Qty: 18 0RF Lantus U-100 Insulin 100 UNIT/1 ML solution 23 unit SQ QPM Qty: 0 glipizide 10 MG tablet 10 mg PO BIDAC Qty: 0 atenolol 50 mg tablet 50 mg PO DAILY Qty: 0 losartan 50 mg Tablet 50 mg PO DAILY hydrocodone-acetaminophen 5-325 mg tablet 1 tab PO Q4H PRN (Reason: pain) Qty: 20 0RF polyethylene glycol 3350 [Miralax] 17 gram/dose powder 17 g PO DAILY Qty: 238 0RF ciprofloxacin HCl 500 mg tablet 500 mg PO BID 9 Days Qty: 18 0RF bisacodyl 10 mg suppository 10 mg SD DAILY PRN (Reason: constipation) Qty: 12 0RF naproxen 375 mg tablet 375 mg PO BID PRN (Reason: pain) Qty: 14 0RF methocarbamol 500 mg tablet 500 mg PO TID Qty: 14 0RF metformin PO BID (DME) Resmed Airsense 10 CPAP Qty: 1 Label Comments: Pressure: 8-12 cmH2O DME: [facility] Instructions: As directed Referrals: Shahnaz Mahmood PA-C [Primary Care Provider] - Visit Report Forms: Patient Portal/API
[2022-02-18 06:36] LABS: Add Manual Diff / Slide Review NO; Basophils Absolute Auto 0 /uL (0-100); Basophils Percent Auto 0.4 % (0-2); Eosinophils Absolute Auto 500 /uL (0-450); Eosinophils Percent Auto 6.5 % (2-4); Hematocrit 45.9 % (41-53); Hemoglobin 15.9 g/dL (13.5-17.5); Lymphocytes Absolute Auto 1800 /uL (1100-4500); Lymphocytes Percent Auto 24.3 % (25-40); Mean Corpuscular HGB Conc 34.7 % (30-36); Mean Corpuscular Hemoglobin 32.8 PG (26-34); Mean Corpuscular Volume 94.5 fL (80-100); Monocytes Absolute Auto 800 /uL (0-900); Monocytes Percent Auto 10.7 % (3-14); Neutrophils Absolute Auto 4200 /uL (1500-7000); Neutrophils Percent Auto 58.1 % (50-75); Platelet Count 160 X10^3/uL (150-400); Red Blood Cell Count 4.86 X10^6/uL (4.5-5.9); Red Cell Distribution Width 13.9 % (11.6-14.8); White Blood Cell Count 7.3 X10^3/uL (4.5-11.0)
[2022-02-18 06:42] LABS: Alanine Aminotransferase 33 IU/L (<50); Albumin 4.3 g/dL (3.5-5.0); Albumin Globulin Ratio 1.2 (1.0-2.8); Alkaline Phosphatase 62 U/L (38-126); Aspartate Aminotransferase 27 IU/L (17-59); BUN Creatinine Ratio 20.8 (6-22); Bilirubin Total 0.7 mg/dL (0.2-1.3); Blood Urea Nitrogen 16 mg/dL (9-20); Calcium 9.3 mg/dL (8.4-10.2); Carbon Dioxide 27 mmol/L (22-32); Chloride 103 mmol/L (98-107); Estimated Glomerular Filt Rate > 60 mL/min (>60); Globulin 3.7 g/dL (1.7-4.1); Glucose 185 mg/dL (80-110); HEMOLYSIS < 15 (0-50); Lipase 112 U/L (23-300); Sodium 140 mmol/L (137-145)
[2022-02-18 06:54] LABS: COVID19 -Nasal RAPID Negative (Negative)
[2022-02-18 07:47] VITALS: BP 149/80; PULSE 55; RESP 16; O2SAT 98
== END 2022-02-18 07:48 | disposition home or self-care (01) ==
PROVIDERS: Emergency Medicine; Emergency Provider Emergency Medicine; Family Provider Student in an Organized Health Care Education/Training Program; PCP Student in an Organized Health Care Education/Training Program
DX: R10.31 Right lower quadrant pain (principal); Z20.822 Contact with and (suspected) exposure to COVID-19
CPT/HCPCS: 36415; 74176; 80053; 81003; 83690; 85025; 87635; 99283; 99284; C9803

== ENCOUNTER 2022-02-24 10:42 | Emergency (ER) | payer MEDICARE, OTHER, SELFPAY ==
[2022-02-24] VITALS (15 sets, daily range): BP systolic 106–171; BP diastolic 52–81; PULSE 48–65; RESP 16–22; TEMP 36.1; O2SAT 96–99; BMI 33.0
--- NOTE | 2022-02-24 12:12 | DI.CT.S_ITS ---
PROCEDURE: CT ABDOMEN PELVIS WO CON INDICATIONS: Right lower quadrant pain TECHNIQUE: After the administration of oral contrast, 5 mm thick sections acquired from the diaphragms to the symphysis. 5 mm coronal and sagittal reformats were performed. For radiation dose reduction, the following was used: automated exposure control, adjustment of mA and/or kV according to patient size. COMPARISON: None. FINDINGS: Lower thorax: The lung bases are clear. Heart size normal. No hiatal hernia. Liver: Normal in size and attenuation. No contour deformity present. Biliary system: Cholecystectomy. No intra or extrahepatic bile duct dilation. Pancreas: With stippled pancreatic calcification consistent with prior chronic pancreatitis. Spleen: Normal in size and density. Adrenals: Normal morphology and density. Reproductive system: Unremarkable as visualized. Urinary system: Normal renal size and attenuation. 2.5 cm left renal cortical hypodensity, likely cyst. No renal calculi, hydronephrosis, or solid mass present. Urinary bladder unremarkable. Gastrointestinal system: The bowel is unremarkable without evidence of bowel obstruction or inflammation. The stomach appears unremarkable. Multiple diverticula arise from the sigmoid colon without evidence of diverticulitis. Appendix: Normal appendix identified. No evidence of appendicitis. Peritoneal spaces: No mesenteric or retroperitoneal adenopathy. No free air. No free fluid. Vasculature: The IVC, aorta and iliac vasculature are unremarkable. Abdominal wall: Abdominal wall intact without evidence of ventral or inguinal hernias. Musculoskeletal: Normal bone mineralization. Degenerative disc disease and arthropathy noted in lower lumbar spine. No acute fractures. IMPRESSION: 1. Normal appendix. No evidence of appendicitis. 2. No acute CT findings in the abdomen and pelvis. 3. Sequelae of chronic pancreatitis. Other chronic degenerative findings detailed above Approved by: Rudi Myles M.D. on 02/24/2022 at 12:42
[2022-02-24 12:41] LABS: Appearance Urine UA CLEAR; Bilirubin Urine UA NEGATIVE (NEGATIVE); Color Urine UA YELLOW; Glucose Urine UA 2+ g/dL (Negative); Ketones Urine UA NEGATIVE (NEGATIVE); Leukocyte Esterase Urine UA NEGATIVE (NEGATIVE); Nitrite Urine UA NEGATIVE (Negative); Occult Blood Urine UA NEGATIVE (Negative); Protein Urine UA NEGATIVE (Negative); Specific Gravity Urine UA 1.015 (1.000-1.035); Urobilinogen Urine UA 0.2 E.U./dL (0.2)
[2022-02-24 12:47] LABS: Bacteria Urine None Seen; Culture Indicated Urine Cult Not Indicated; RBC Urine None Seen (0-5/HPF); WBC Urine None Seen (0-5/HPF)
--- NOTE | 2022-02-24 12:49 | ED_ITS ---
HPI - Abdominal Pain <CHELY Raymond - Last Filed: 02/24/22 17:02> General Chief Complaint: Abdominal Pain Stated Complaint: ABD pain Time Seen by Provider: 02/24/22 12:08 Source: patient Mode of arrival: Ambulatory History of Present Illness HPI narrative: This is a 76-year-old male with past medical history including COPD, type 2 diabetes on insulin, BPH, and hypertension who returns to the emergency de partment after being seen for right lower quadrant abdominal pain on February 18 2022 for ongoing sharp, grabby pain that has been ongoing for weeks. Patient had a CT KUB completed on 02/18/2022 which showed no acute intra-abdominal findings, normal appendix with diverticulosis, no acute diverticulitis. Mild haziness of the mesenteric root which is a nonspecific finding but could be associated with mesenteric panniculitis. He was without hydronephrosis, nephrolithiasis, hydroureter or urererolithiasis. Patient endorses right testicular pain and right inguinal pain without mass or lump Related Data Home Medications Medication Instructions Recorded Confirmed glipizide 10 mg tablet 10 mg PO BIDAC ##0 09/23/17 03/13/19 insulin glargine 100 unit/mL 23 unit SQ QPM ##0 09/23/17 03/13/19 subcutaneous solution (Lantus U-100 Insulin) losartan 50 mg tablet 50 mg PO DAILY 09/04/18 03/13/19 Resmed Airsense 10 CPAP #1 ea 03/13/19 03/13/19 atenolol 50 mg tablet 50 mg PO DAILY #0 tabs 03/13/19 03/13/19 metformin PO BID 03/13/19 03/13/19 Previous Rx's Medication Instructions Recorded albuterol sulfate 90 mcg/actuation 1 inh inhalation Q4-6H PRN 01/13/19 aerosol inhaler shortness of breath #18 grams hydrocodone 5 mg-acetaminophen 325 1 tab PO Q4H PRN pain #20 tabs 05/21/19 mg tablet ondansetron 4 mg disintegrating 4 mg PO Q8H PRN nausea and 02/18/22 tablet vomiting #10 tabs bisacodyl 10 mg rectal suppository 10 mg NC DAILY PRN constipation 02/24/22 #12 ea ciprofloxacin HCl 500 mg tablet 500 mg PO BID 9 days #18 tabs 02/24/22 methocarbamol 500 mg tablet 500 mg PO TID #14 tabs 02/24/22 naproxen 375 mg tablet 375 mg PO BID PRN pain #14 tabs 02/24/22 polyethylene glycol 3350 17 17 g PO DAILY for soft stool #238 02/24/22 gram/dose oral powder (Miralax) grams Allergies Allergy/AdvReac Type Severity Reaction Status Date / Time Iodine and Iodide Containing Allergy Severe Anaphylaxis Verified 02/24/22 10:52 Produc [IODINE AND IODIDE CONTAINING PRODUC] Sulfa (Sulfonamide Allergy Severe My eyes Verified 02/24/22 10:52 Antibiotics) close up [SULFA (SULFONAMIDE and my ANTIBIOTICS)] face gets puffy Review of Systems <CHELY Raymond - Last Filed: 02/24/22 17:02> Review of Systems Narrative: Review of systems is negative for acute abnormalities unless otherwise noted in HPI Patient History <CHELY Raymond - Last Filed: 02/24/22 17:02> Medical History (Updated 02/24/22 @ 16:15 by CHELY Raymond) Diabetes Hyperlipidemia due to type 2 diabetes mellitus Hypertension associated with diabetes Obesity Obstructive sleep apnea of adult (~1994) Personal history of colonic polyps Surgical History History of cholecystectomy History of colonoscopy History of umbilical hernia repair Social History marital status: household members: spouse Smoking Status: Former smoker Smoking Status: Former smoker alcohol intake frequency: holidays/special occasions only Substance Use Type: does not use Exam <CHELY Raymond - Last Filed: 02/24/22 17:02> Narrative Exam Narrative: Reviewed vitals signs and nursing notes. General: cooperative, comfortable, in no acute distress, well groomed HEENT: symmetrical facial expressions, moist mucous membranes Cardiovascular: irregular rate, sinus rhythm, bradycardia with heart rate between 50s and 60s, no peripheral edema, warm extremities, strong pulses Respiratory: normal effort, able to speak in complete sentences, without wheezing, stridor, or abnormal breath sounds. No retractions or tachypnea. GI: abdomen soft, tender to palpation to the right lower quadrant, distended, without masses, no rebound tenderness or exquisite tenderness with exam. 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 exam: No penile abnormalities on exam, Guaiac stool negative, Tender with palpation of prostate without boggy nature, prostate was firm Right testicle with tenderness over the epididymis, patient jumped pain Skin: brisk capillary refill, without pallor or erythema Neuro: normal speech and cognition, A&O x3, ambulatory, clear speech Psych: mental status is grossly normal, congruent mood, normal affect, pleasant and cooperative Initial Vital Signs Initial Vital Signs: Vital Signs Temperature 97.0 F L 02/24/22 10:48 Pulse Rate 57 L 02/24/22 10:48 Respiratory Rate 16 02/24/22 10:48 Blood Pressure 171/81 H 02/24/22 10:48 Pulse Oximetry 98 02/24/22 10:48 Oxygen Delivery Method 02/24/22 10:48 <Kymberly Andrews DO - Last Filed: 02/25/22 07:44> Initial Vital Signs Initial Vital Signs: Vital Signs Temperature 97.0 F L 02/24/22 10:48 Pulse Rate 57 L 02/24/22 10:48 Respiratory Rate 16 02/24/22 10:48 Blood Pressure 171/81 H 02/24/22 10:48 Pulse Oximetry 98 02/24/22 10:48 Oxygen Delivery Method 02/24/22 10:48 Course <CHELY Raymond - Last Filed: 02/24/22 17:02> Orders Ordered: Discontinued Medications Ciprofloxacin (Ciprofloxacin 250 Mg Tablet) 500 mg PO NOW ONE Stop: 02/24/22 16:03 Last Admin: 02/24/22 16:15 Dose: 500 mg Documented By: NLIES Lactated Ringer's (Lactated Ringers) 1,000 mls @ 1,000 mls/hr IV BOLUS ONE Stop: 02/24/22 14:04 Last Infusion: 02/24/22 16:34 Dose: 0 mls/hr Documented By: Admin: 02/24/22 13:26 Dose: 1,000 mls/hr Documented By: DORENE Ketorolac Tromethamine (Ketorolac 30 Mg/Ml Vial) 15 mg IV NOW ONE Stop: 02/24/22 16:16 Last Admin: 02/24/22 16:29 Dose: 15 mg Documented By: REGINALDO Vital Signs Vital signs: Vital Signs - 8 hr 02/24/22 10:48 02/24/22 12:37 02/24/22 12:37 Temperature 97.0 F L Pulse Rate 57 L 52 L Respiratory Rate 16 Blood Pressure 171/81 H 106/56 L Pulse Oximetry 98 98 Oxygen Delivery Method Room Air 02/24/22 13:00 02/24/22 13:27 02/24/22 13:27 Temperature Pulse Rate 55 L 50 L Respiratory Rate 17 22 Blood Pressure 111/70 Pulse Oximetry 98 98 Oxygen Delivery Method 02/24/22 13:30 02/24/22 14:00 02/24/22 14:00 Temperature Pulse Rate 56 L 50 L Respiratory Rate 20 17 Blood Pressure 147/69 H Pulse Oximetry 99 97 Oxygen Delivery Method 02/24/22 14:30 02/24/22 14:31 02/24/22 14:31 Temperature Pulse Rate 52 L 56 L Respiratory Rate Blood Pressure 148/62 H Pulse Oximetry 98 99 Oxygen Delivery Method 02/24/22 15:00 02/24/22 15:00 02/24/22 15:30 Temperature Pulse Rate 50 L 50 L Respiratory Rate 16 16 Blood Pressure 138/66 Pulse Oximetry 97 97 Oxygen Delivery Method 02/24/22 15:31 02/24/22 15:31 02/24/22 16:00 Temperature Pulse Rate 51 L 48 L Respiratory Rate 16 16 Blood Pressure 111/55 L Pulse Oximetry 96 97 Oxygen Delivery Method 02/24/22 16:01 02/24/22 16:01 02/24/22 16:37 Temperature Pulse Rate 48 L 65 Respiratory Rate 18 18 Blood Pressure 111/52 L 111/60 Pulse Oximetry 96 98 Oxygen Delivery Method Room Air 02/24/22 16:30 Temperature Pulse Rate 54 L Respiratory Rate 20 Blood Pressure Pulse Oximetry 99 Oxygen Delivery Method <Kymberly Andrwes, - Last Filed: 02/25/22 07:44> Orders Ordered: Discontinued Medications Ciprofloxacin (Ciprofloxacin 250 Mg Tablet) 500 mg PO NOW ONE Stop: 02/24/22 16:03 Last Admin: 02/24/22 16:15 Dose: 500 mg Documented By: NILES Lactated Ringer's (Lactated Ringers) 1,000 mls @ 1,000 mls/hr IV BOLUS ONE Stop: 02/24/22 14:04 Last Infusion: 02/24/22 16:34 Dose: 0 mls/hr Documented By: Admin: 02/24/22 13:26 Dose: 1,000 mls/hr Documented By: DORENE Ketorolac Tromethamine (Ketorolac 30 Mg/Ml Vial) 15 mg IV NOW ONE Stop: 02/24/22 16:16 Last Admin: 02/24/22 16:29 Dose: 15 mg Documented By: REGINALDO Vital Signs Vital signs: Vital Signs - 8 hr 02/24/22 10:48 02/24/22 12:37 02/24/22 12:37 Temperature 97.0 F L Pulse Rate 57 L 52 L Respiratory Rate 16 Blood Pressure 171/81 H 106/56 L Pulse Oximetry 98 98 Oxygen Delivery Method Room Air 02/24/22 13:00 02/24/22 13:27 02/24/22 13:27 Temperature Pulse Rate 55 L 50 L Respiratory Rate 17 22 Blood Pressure 111/70 Pulse Oximetry 98 98 Oxygen Delivery Method 02/24/22 13:30 02/24/22 14:00 02/24/22 14:00 Temperature Pulse Rate 56 L 50 L Respiratory Rate 20 17 Blood Pressure 147/69 H Pulse Oximetry 99 97 Oxygen Delivery Method 02/24/22 14:30 02/24/22 14:31 02/24/22 14:31 Temperature Pulse Rate 52 L 56 L Respiratory Rate Blood Pressure 148/62 H Pulse Oximetry 98 99 Oxygen Delivery Method 02/24/22 15:00 02/24/22 15:00 02/24/22 15:30 Temperature Pulse Rate 50 L 50 L Respiratory Rate 16 16 Blood Pressure 138/66 Pulse Oximetry 97 97 Oxygen Delivery Method 02/24/22 15:31 02/24/22 15:31 02/24/22 16:00 Temperature Pulse Rate 51 L 48 L Respiratory Rate 16 16 Blood Pressure 111/55 L Pulse Oximetry 96 97 Oxygen Delivery Method 02/24/22 16:01 02/24/22 16:01 02/24/22 16:37 Temperature Pulse Rate 48 L 65 Respiratory Rate 18 18 Blood Pressure 111/52 L 111/60 Pulse Oximetry 96 98 Oxygen Delivery Method Room Air 02/24/22 16:30 Temperature Pulse Rate 54 L Respiratory Rate 20 Blood Pressure Pulse Oximetry 99 Oxygen Delivery Method MDM - Abdominal Pain <Rae Pulido INSTRUCTIONAL PARAPROFESSIONAL - Last Filed: 02/24/22 17:02> Lab Data Result diagrams: 02/24/22 12:59 02/24/22 12:59 Labs: Lab Results 02/24/22 02/24/22 02/24/22 Range/Units 12:09 12:54 12:54 WBC (4.5-11.0) X10^3/uL RBC (4.5-5.9) X10^6/uL Hgb (13.5-17.5) g/dL Hct (41-53) % MCV (80-100) fL MCH (26-34) PG MCHC (30-36) % RDW (11.6-14.8) % Plt Count (150-400) X10^3/uL Neut % (Auto) (50-75) % Lymph % (Auto) (25-40) % [place] % (Auto) (3-14) % Eos % (Auto) (2-4) % Baso % (Auto) (0-2) % Neut # (Auto) (8027-3704) /uL Lymph # (Auto) (5858-9915) /uL [place] # (Auto) (0-900) /uL Eos # (Auto) (0-450) /uL Baso # (Auto) (0-100) /uL ESR 1 (0-15) MM/HR D-Dimer 821 H (<500) ng/ml Sodium (137-145) mmol/L Potassium (3.4-5.1) mmol/L Chloride (98-107) mmol/L Carbon Dioxide (22-32) mmol/L BUN (9-20) mg/dL Creatinine (0.66-1.25) mg/dL Estimated GFR (>60) mL/min BUN/Creatinine Ratio (6-22) Glucose (80-110) mg/dL Lactate (0.7-2.1) mmol/L Calcium (8.4-10.2) mg/dL Total Bilirubin (0.2-1.3) mg/dL AST (17-59) IU/L ALT (<50) IU/L Alkaline Phosphatase (38-126) U/L C-Reactive Protein (<1.0) mg/dL Total Protein (6.3-8.2) g/dL Albumin (3.5-5.0) g/dL Globulin (1.7-4.1) g/dL Albumin/Globulin Ratio (1.0-2.8) Lipase (23-300) U/L Urine Color Yellow Urine Appearance Clear Urine pH 5.0 (4.5-8.0) Ur Specific [place] 1.015 (1.000-1.035) Urine Protein Negative (Negative) Urine Glucose (UA) 2+ H (Negative) g/dL Urine Ketones Negative (NEGATIVE) Urine Occult Blood Negative (Negative) Urine Nitrate Negative (Negative) Urine Bilirubin Negative (NEGATIVE) Urine Urobilinogen 0.2 (0.2) E.U./dL Ur Leukocyte Esterase Negative (NEGATIVE) Urine RBC None seen (0-5/HPF) Urine WBC None seen (0-5/HPF) Urine Bacteria None seen (None) Ur Culture Indicated? Cult not indicated SARS-CoV-2 (PCR) (Negative) 02/24/22 02/24/22 02/24/22 Range/Units 12:54 12:59 12:59 WBC 7.3 (4.5-11.0) X10^3/uL RBC 4.62 (4.5-5.9) X10^6/uL Hgb 15.0 (13.5-17.5) g/dL Hct 43.5 (41-53) % MCV 94.1 (80-100) fL MCH 32.4 (26-34) PG MCHC 34.4 (30-36) % RDW 13.9 (11.6-14.8) % Plt Count 156 (150-400) X10^3/uL Neut % (Auto) 61.4 (50-75) % Lymph % (Auto) 25.0 (25-40) % [place] % (Auto) 8.1 (3-14) % Eos % (Auto) 5.1 H (2-4) % Baso % (Auto) 0.4 (0-2) % Neut # (Auto) 4500 (3955-5498) /uL Lymph # (Auto) 1800 (5315-7487) /uL [place] # (Auto) 600 (0-900) /uL Eos # (Auto) 400 (0-450) /uL Baso # (Auto) 0 (0-100) /uL ESR (0-15) MM/HR D-Dimer (<500) ng/ml Sodium 136 L (137-145) mmol/L Potassium 4.5 (3.4-5.1) mmol/L Chloride 99 (98-107) mmol/L Carbon Dioxide 30 (22-32) mmol/L BUN 18 (9-20) mg/dL Creatinine 0.78 (0.66-1.25) mg/dL Estimated GFR > 60 (>60) mL/min BUN/Creatinine Ratio 23.1 H (6-22) Glucose 179 H (80-110) mg/dL Lactate (0.7-2.1) mmol/L Calcium 9.3 (8.4-10.2) mg/dL Total Bilirubin 0.6 (0.2-1.3) mg/dL AST 30 (17-59) IU/L ALT 32 (<50) IU/L Alkaline Phosphatase 51 (38-126) U/L C-Reactive Protein < 0.5 (<1.0) mg/dL Total Protein 7.5 (6.3-8.2) g/dL Albumin 4.0 (3.5-5.0) g/dL Globulin 3.5 (1.7-4.1) g/dL Albumin/Globulin Ratio 1.1 (1.0-2.8) Lipase 71 (23-300) U/L Urine Color Urine Appearance Urine pH (4.5-8.0) Ur Specific [place] (1.000-1.035) Urine Protein (Negative) Urine Glucose (UA) (Negative) g/dL Urine Ketones (NEGATIVE) Urine Occult Blood (Negative) Urine Nitrate (Negative) Urine Bilirubin (NEGATIVE) Urine Urobilinogen (0.2) E.U./dL Ur Leukocyte Esterase (NEGATIVE) Urine RBC (0-5/HPF) Urine WBC (0-5/HPF) Urine Bacteria (None) Ur Culture Indicated? SARS-CoV-2 (PCR) (Negative) 02/24/22 02/24/22 Range/Units 12:59 13:03 WBC (4.5-11.0) X10^3/uL RBC (4.5-5.9) X10^6/uL Hgb (13.5-17.5) g/dL Hct (41-53) % MCV (80-100) fL MCH (26-34) PG MCHC (30-36) % RDW (11.6-14.8) % Plt Count (150-400) X10^3/uL Neut % (Auto) (50-75) % Lymph % (Auto) (25-40) % [place] % (Auto) (3-14) % Eos % (Auto) (2-4) % Baso % (Auto) (0-2) % Neut # (Auto) (3583-5227) /uL Lymph # (Auto) (8817-4775) /uL [place] # (Auto) (0-900) /uL Eos # (Auto) (0-450) /uL Baso # (Auto) (0-100) /uL ESR (0-15) MM/HR D-Dimer (<500) ng/ml Sodium (137-145) mmol/L Potassium (3.4-5.1) mmol/L Chloride (98-107) mmol/L Carbon Dioxide (22-32) mmol/L BUN (9-20) mg/dL Creatinine (0.66-1.25) mg/dL Estimated GFR (>60) mL/min BUN/Creatinine Ratio (6-22) Glucose (80-110) mg/dL Lactate 1.4 (0.7-2.1) mmol/L Calcium (8.4-10.2) mg/dL Total Bilirubin (0.2-1.3) mg/dL AST (17-59) IU/L ALT (<50) IU/L Alkaline Phosphatase (38-126) U/L C-Reactive Protein (<1.0) mg/dL Total Protein (6.3-8.2) g/dL Albumin (3.5-5.0) g/dL Globulin (1.7-4.1) g/dL Albumin/Globulin Ratio (1.0-2.8) Lipase (23-300) U/L Urine Color Urine Appearance Urine pH (4.5-8.0) Ur Specific [place] (1.000-1.035) Urine Protein (Negative) Urine Glucose (UA) (Negative) g/dL Urine Ketones (NEGATIVE) Urine Occult Blood (Negative) Urine Nitrate (Negative) Urine Bilirubin (NEGATIVE) Urine Urobilinogen (0.2) E.U./dL Ur Leukocyte Esterase (NEGATIVE) Urine RBC (0-5/HPF) Urine WBC (0-5/HPF) Urine Bacteria (None) Ur Culture Indicated? SARS-CoV-2 (PCR) Negative (Negative) Point of care testing: Point of Care Testing Stool Occult Blood Negative Urine Dip Bedside Urine Glucose 1000 mg/dl Bedside Urine Bilirubin - Negative Bedside Urine Ketone - Negative Urine Specific [place] 1.025 Bedside Urine Occult Blood - Negative Bedside Urine pH 6.0 Bedside Urine Protein - Negative Bedside Urine Urobilinogen - Negative Bedside Urine Nitrite - Negative Bedside Urine Leukocytes - Negative Esterase Imaging Data CT scan - abdomen/pelvis: Radiologist's Impression: PROCEDURE:? CT ABDOMEN PELVIS WO CON ? INDICATIONS:? Right lower quadrant pain ? TECHNIQUE:? After the administration of oral contrast, 5 mm thick sections acquired from the diaphragms to the symphysis.? 5 mm coronal and sagittal reformats were performed.? For radiation dose reduction, the following was used:? automated exposure control, a djustment of mA and/or kV according to patient size.? ? COMPARISON:? None. ? FINDINGS: ? Lower thorax: The lung bases are clear.? Heart size normal.? No hiatal hernia. ? Liver:? Normal in size and attenuation. No contour deformity present. ? Biliary system:? Cholecystectomy.? No intra or extrahepatic bile duct dilation. ? Pancreas:? With stippled pancreatic calcification consistent with prior chronic pancreatitis. ? Spleen:? Normal in size and density. ? Adrenals:? Normal morphology and density. ? Reproductive system:? Unremarkable as visualized. ? Urinary system:? Normal renal size and attenuation.? 2.5 cm left renal cortical hypodensity, likely cyst.? No renal calculi, hydronephrosis, or solid mass present.? Urinary bladder unremarkable. ? Gastrointestinal system:? The bowel is unremarkable without evidence of bowel obstruction or inflammation. The stomach appears unremarkable.? Multiple diverticula arise from the sigmoid colon without evidence of diverticulitis. ? ? Appendix:? Normal appendix identified.? No evidence of appendicitis. ? Peritoneal spaces:? No mesenteric or retroperitoneal adenopathy.? No free air.? No free fluid.? ? Vasculature:? The IVC, aorta and iliac vasculature are unremarkable. ? Abdominal wall:? Abdominal wall intact without evidence of ventral or inguinal hernias. ? Musculoskeletal:? Normal bone mineralization.? 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 No acute fractures.? ? IMPRESSION: ? 1. Normal appendix.? No evidence of appendicitis. ? 2. No acute CT findings in the abdomen and pelvis. ? 3. Sequelae of chronic pancreatitis.? Other chronic degenerative findings detailed above ? ? ? Approved by: Rudi Myles M.D. on 02/24/2022 at 12:42? US - PERSONAL BANKING ASSISTANT: Radiologist's Impression: PROCEDURE:? US SCROTUM ? INDICATIONS:? RIGHT SCROTAL PAIN ? TECHNIQUE:? Real-time scanning was performed of the scrotum and testicles, with image documentation.? Color and pulse Doppler interrogation was performed of both testicles.? ? COMPARISON:? [facility], CT, CT ABDOMEN PELVIS WO CON, 02/24/2022, 13:23.? [facility], CT, CT KIDNEY URETER BLADDER (KUB), 02/18/2022, 6:46. ? FINDINGS:? ? Right:? Testicle is normal in size at 4 x 2.7 x 2.4 cm, and homogenous in echotexture.? There are microcalcifications in the region of the right epididymis.? Less likely a testicular capsule.? Epididymis is normal in overall size and morphology.? Trace hydrocele.? No varicoceles.? Overlying scrotal skin is normal in thickness.? ? Left:? Testicle is normal in size at 3.7 x 3.1 x 2.2 cm, and homogeneous in echotexture.? Epididymis is normal in overall size and morphology.? Small benign epididymal head cyst measuring 0.5 cm.? Tiny calcifications in the region of the left epididymis.? No hydrocele or varicoceles.? Overlying scrotal skin is normal in thickness.? ? Doppler:? Color and pulse Doppler demonstrate normal and symmetric arterial flow in both testicles.? ? IMPRESSION:? 1. No hyperemia appreciated to suggest epididymitis.? No torsion demonstrated. ? 2. Trace right hydrocele.? No varicocele. ? 3. Microcalcifications in the region of the epididymi bilaterally.? This is likely benign and could be due to atrophy or sperm granulomas.? The clinical significance of this finding is uncertain. ? ? Dictated by: Miguel Domingo M.D. on 02/24/2022 at 15:39 ? ? Approved by: Miguel Domingo M.D. on 02/24/2022 at 15:44 ? ECG Data Interpretation: EKG independently reviewed by myself at reveals sinus Usman cardia 57 bpm with regular axis, PACs, and left bundle-branch block. No STEMI, ST segment changes, arrhythmia, or acute ischemic changes. MDM Narrative Medical decision making narrative: This is a 76-year-old male who returns to the emergency department for evaluation of his right lower quadrant pain with associated back pain. Patient is a type 2 diabetic, on insulin, not on any anticoagulants who has an allergy with anaphylaxis to IV contrast. He had a CT KUB of his abdomen completed on 02/18/2022 which did not show any acute abnormalities. He returns for ongoing pain, tenderness right lower quadrant, tenderness his right testicle and also found to have rectal pain and tenderness to prostate exam. Guaiac stool was negative, postvoid residual was 2 mm after patient voided 600 mL. Lab work overall is reassuring, patient does not have any leukocytosis, no electrolyte abnormalities, his D-dimer is 821 which is not significant when corrected for age, glucose 179, lactate 1.4, C-reactive protein is less than 0.5, lipase of 71, urine without blood, bacteria, or wbc's. His COVID PCR was negative. Abdominal/pelvis CT with p.o. contrast was completed for evaluation of his right lower quadrant pain. Patient reports that he has been having pellet-like stools and presumed to have impacted obstipation in his sigmoid colon. CT does not reflect this. Ultrasound of his scrotum was obtained as patient had tenderness to his right testicle over the epididymis on exam. Ultrasound shows no hyperemia associated to suggest epididymitis, no torsion demonstrated, trace right hydrocele without varicocele. Microcalcifications in the region of epididymi bilaterally, reports states this is likely benign and could be due to atrophy or sperm granulomas. Patient has a small benign epididymal head cyst measuring 0.5 cm. Patient reports that he had pellet-like stools followed by loose stool and long periods of time without stool in between. Differential diagnoses include obstipation of the sigmoid colon, colitis, acute proctitis which I have chosen to treat patient for since this is his 2nd visit and he endorses feeling ill and fatigued due to this pain. This could also be UTI, inguinal hernia, perforated viscus, diverticulitis, impacted constipation. Prescribed patient stool softeners and encouraged him to use until his stools are soft and regular in nature. Was given methocarbamol to try a half tab of to see if this is a muscle spasm pain and to help him sleep as needed. He was prescribed ciprofloxacin b.i.d. for the next 9 days, was given his 1st dose here in the emergency department. He is also given bisacodyl suppositories if has hard stool that is difficult to excrete. A referral to GI was placed for follow-up colonoscopy as needed. Patient may benefit from a urology evaluation as his pain could reflect prostate issues, prostate did not feel boggy, it was firm but patient was exquisitely tender. Patient is appropriate and amenable to discharge home. Vital signs are stable on repeat examination is unremarkable. Patient has been informed of results. Patient has been given strict return to ER precautions for any new or worsening symptoms. Patient understands to follow up closely with outpatient providers as instructed. Patient understands plan and agrees to discharge home. All questions and concerns answered at this time. <Kymberly Andrews, DO - Last Filed: 02/25/22 07:44> Lab Data Labs: Lab Results 02/24/22 02/24/22 02/24/22 Range/Units 12:09 12:54 12:54 WBC (4.5-11.0) X10^3/uL RBC (4.5-5.9) X10^6/uL Hgb (13.5-17.5) g/dL Hct (41-53) % MCV (80-100) fL MCH (26-34) PG MCHC (30-36) % RDW (11.6-14.8) % Plt Count (150-400) X10^3/uL Neut % (Auto) (50-75) % Lymph % (Auto) (25-40) % [place] % (Auto) (3-14) % Eos % (Auto) (2-4) % Baso % (Auto) (0-2) % Neut # (Auto) (0234-9438) /uL Lymph # (Auto) (4033-9212) /uL [place] # (Auto) (0-900) /uL Eos # (Auto) (0-450) /uL Baso # (Auto) (0-100) /uL ESR 1 (0-15) MM/HR D-Dimer 821 H (<500) ng/ml Sodium (137-145) mmol/L Potassium (3.4-5.1) mmol/L Chloride (98-107) mmol/L Carbon Dioxide (22-32) mmol/L BUN (9-20) mg/dL Creatinine (0.66-1.25) mg/dL Estimated GFR (>60) mL/min BUN/Creatinine Ratio (6-22) Glucose (80-110) mg/dL Lactate (0.7-2.1) mmol/L Calcium (8.4-10.2) mg/dL Total Bilirubin (0.2-1.3) mg/dL AST (17-59) IU/L ALT (<50) IU/L Alkaline Phosphatase (38-126) U/L C-Reactive Protein (<1.0) mg/dL Total Protein (6.3-8.2) g/dL Albumin (3.5-5.0) g/dL Globulin (1.7-4.1) g/dL Albumin/Globulin Ratio (1.0-2.8) Lipase (23-300) U/L Urine Color Yellow Urine Appearance Clear Urine pH 5.0 (4.5-8.0) Ur Specific [place] 1.015 (1.000-1.035) Urine Protein Negative (Negative) Urine Glucose (UA) 2+ H (Negative) g/dL Urine Ketones Negative (NEGATIVE) Urine Occult Blood Negative (Negative) Urine Nitrate Negative (Negative) Urine Bilirubin Negative (NEGATIVE) Urine Urobilinogen 0.2 (0.2) E.U./dL Ur Leukocyte Esterase Negative (NEGATIVE) Urine RBC None seen (0-5/HPF) Urine WBC None seen (0-5/HPF) Urine Bacteria None seen (None) Ur Culture Indicated? Cult not indicated SARS-CoV-2 (PCR) (Negative) 02/24/22 02/24/22 02/24/22 Range/Units 12:54 12:59 12:59 WBC 7.3 (4.5-11.0) X10^3/uL RBC 4.62 (4.5-5.9) X10^6/uL Hgb 15.0 (13.5-17.5) g/dL Hct 43.5 (41-53) % MCV 94.1 (80-100) fL MCH 32.4 (26-34) PG MCHC 34.4 (30-36) % RDW 13.9 (11.6-14.8) % Plt Count 156 (150-400) X10^3/uL Neut % (Auto) 61.4 (50-75) % Lymph % (Auto) 25.0 (25-40) % [place] % (Auto) 8.1 (3-14) % Eos % (Auto) 5.1 H (2-4) % Baso % (Auto) 0.4 (0-2) % Neut # (Auto) 4500 (5544-4102) /uL Lymph # (Auto) 1800 (8720-4442) /uL [place] # (Auto) 600 (0-900) /uL Eos # (Auto) 400 (0-450) /uL Baso # (Auto) 0 (0-100) /uL ESR (0-15) MM/HR D-Dimer (<500) ng/ml Sodium 136 L (137-145) mmol/L Potassium 4.5 (3.4-5.1) mmol/L Chloride 99 (98-107) mmol/L Carbon Dioxide 30 (22-32) mmol/L BUN 18 (9-20) mg/dL Creatinine 0.78 (0.66-1.25) mg/dL Estimated GFR > 60 (>60) mL/min BUN/Creatinine Ratio 23.1 H (6-22) Glucose 179 H (80-110) mg/dL Lactate (0.7-2.1) mmol/L Calcium 9.3 (8.4-10.2) mg/dL Total Bilirubin 0.6 (0.2-1.3) mg/dL AST 30 (17-59) IU/L ALT 32 (<50) IU/L Alkaline Phosphatase 51 (38-126) U/L C-Reactive Protein < 0.5 (<1.0) mg/dL Total Protein 7.5 (6.3-8.2) g/dL Albumin 4.0 (3.5-5.0) g/dL Globulin 3.5 (1.7-4.1) g/dL Albumin/Globulin Ratio 1.1 (1.0-2.8) Lipase 71 (23-300) U/L Urine Color Urine Appearance Urine pH (4.5-8.0) Ur Specific [place] (1.000-1.035) Urine Protein (Negative) Urine Glucose (UA) (Negative) g/dL Urine Ketones (NEGATIVE) Urine Occult Blood (Negative) Urine Nitrate (Negative) Urine Bilirubin (NEGATIVE) Urine Urobilinogen (0.2) E.U./dL Ur Leukocyte Esterase (NEGATIVE) Urine RBC (0-5/HPF) Urine WBC (0-5/HPF) Urine Bacteria (None) Ur Culture Indicated? SARS-CoV-2 (PCR) (Negative) 02/24/22 02/24/22 Range/Units 12:59 13:03 WBC (4.5-11.0) X10^3/uL RBC (4.5-5.9) X10^6/uL Hgb (13.5-17.5) g/dL Hct (41-53) % MCV (80-100) fL MCH (26-34) PG MCHC (30-36) % RDW (11.6-14.8) % Plt Count (150-400) X10^3/uL Neut % (Auto) (50-75) % Lymph % (Auto) (25-40) % [place] % (Auto) (3-14) % Eos % (Auto) (2-4) % Baso % (Auto) (0-2) % Neut # (Auto) (1464-9521) /uL Lymph # (Auto) (5524-4157) /uL [place] # (Auto) (0-900) /uL Eos # (Auto) (0-450) /uL Baso # (Auto) (0-100) /uL ESR (0-15) MM/HR D-Dimer (<500) ng/ml Sodium (137-145) mmol/L Potassium (3.4-5.1) mmol/L Chloride (98-107) mmol/L Carbon Dioxide (22-32) mmol/L BUN (9-20) mg/dL Creatinine (0.66-1.25) mg/dL Estimated GFR (>60) mL/min BUN/Creatinine Ratio (6-22) Glucose (80-110) mg/dL Lactate 1.4 (0.7-2.1) mmol/L Calcium (8.4-10.2) mg/dL Total Bilirubin (0.2-1.3) mg/dL AST (17-59) IU/L ALT (<50) IU/L Alkaline Phosphatase (38-126) U/L C-Reactive Protein (<1.0) mg/dL Total Protein (6.3-8.2) g/dL Albumin (3.5-5.0) g/dL Globulin (1.7-4.1) g/dL Albumin/Globulin Ratio (1.0-2.8) Lipase (23-300) U/L Urine Color Urine Appearance Urine pH (4.5-8.0) Ur Specific [place] (1.000-1.035) Urine Protein (Negative) Urine Glucose (UA) (Negative) g/dL Urine Ketones (NEGATIVE) Urine Occult Blood (Negative) Urine Nitrate (Negative) Urine Bilirubin (NEGATIVE) Urine Urobilinogen (0.2) E.U./dL Ur Leukocyte Esterase (NEGATIVE) Urine RBC (0-5/HPF) Urine WBC (0-5/HPF) Urine Bacteria (None) Ur Culture Indicated? SARS-CoV-2 (PCR) Negative (Negative) Point of care testing: Point of Care Testing Stool Occult Blood Negative Urine Dip Bedside Urine Glucose 1000 mg/dl Bedside Urine Bilirubin - Negative Bedside Urine Ketone - Negative Urine Specific [place] 1.025 Bedside Urine Occult Blood - Negative Bedside Urine pH 6.0 Bedside Urine Protein - Negative Bedside Urine Urobilinogen - Negative Bedside Urine Nitrite - Negative Bedside Urine Leukocytes - Negative Esterase Discharge Plan Departure Patient Disposition: Home Clinical Impression: Acute proctitis Abdominal right lower quadrant tenderness Qualifiers: Presence of rebound: present Qualified Code(s): R10.823 - Right lower quadrant rebound abdominal tenderness Instructions: DI for Diverticulosis, Proctitis Activity Restrictions/Additional Instructions: *You have been diagnosed with proctitis. This is a clinical diagnosis meaning you were tender on exam of your prostate, you have had rectal pain, you have some constipation but your CT of your abdomen does not show any acute changes. Your appendix appeared normal, no bowel obstruction, there is diverticula in the sigmoid colon without evidence of diverticulitis. Your stool pattern suggests that you have impacted constipation the sigmoid colon. Please use a stool softener-MiraLax daily until you start having soft stools and continue as needed. You may take it twice a day and then go down to once a day when your stool soft. Please follow-up with your primary doctor for another evaluation. I recommend a colonoscopy if this does not improve, or referral to Urology if there any urologic involvement. Your ultrasound of the scrotum did not suggest epididymitis, and no torsion of your testing. There is a small hydrocele and no dangerous findings. Please stay hydrated, this could be related to your back pain so I have given you multiple medications. I have given you naproxen for pain, have also given you muscle relaxers, you may take 1 before bed, you might want to try half of 1 to see how tired it makes you. This may help with your abdominal pain. Please take these antibiotics twice a day for the next 9 days and follow-up with [facility] for recheck. If you are having a difficult time getting hard stool out, please try a bisacodyl suppository and wait approximately 30 minutes before trying again. Please drink plenty of clear fluids and return for any worsening of your symptoms. *What to do: *Please continue to take your regular medications as directed. [x ] New medication prescriptions sent to your pharmacy: [ ] [ ] New medication written as a paper prescription [ ] No new medications given *Please follow up with your primary care provider in 2-3 days, call for an appointment. Let them know you were seen in the Emergency Department and that we asked that you be seen for follow-up. We will electronically transmit a record of today's note if your PCP is in our system *If you do not have a primary care provider please contact [phone] to establish care with one of the [facility] primary care providers. *Return to Emergency Department if you should have any new, worsening, or co ncerning symptoms, such as [fever greater than 101F, chills, worsening pain, persistent vomiting or other bothersome symptoms]. Prescriptions: New polyethylene glycol 3350 [Miralax] 17 gram/dose powder 17 g PO DAILY Qty: 238 0RF ciprofloxacin HCl 500 mg tablet 500 mg PO BID 9 Days Qty: 18 0RF bisacodyl 10 mg suppository 10 mg NC DAILY PRN (Reason: constipation) Qty: 12 0RF naproxen 375 mg tablet 375 mg PO BID PRN (Reason: pain) Qty: 14 0RF methocarbamol 500 mg tablet 500 mg PO TID Qty: 14 0RF No Action albuterol sulfate 90 mcg/actuation HFA aerosol inhaler 1 inh INHALATION Q4-6H PRN (Reason: shortness of breath) Qty: 18 0RF Lantus U-100 Insulin 100 UNIT/1 ML solution 23 unit SQ QPM Qty: 0 glipizide 10 MG tablet 10 mg PO BIDAC Qty: 0 atenolol 50 mg tablet 50 mg PO DAILY Qty: 0 losartan 50 mg Tablet 50 mg PO DAILY hydrocodone-acetaminophen 5-325 mg tablet 1 tab PO Q4H PRN (Reason: pain) Qty: 20 0RF ondansetron 4 mg tablet,disintegrating 4 mg PO Q8H PRN (Reason: nausea and vomiting) Qty: 10 0RF metformin PO BID (DME) Resmed Airsense 10 CPAP Qty: 1 Label Comments: Pressure: 8-12 cmH2O DME: [facility] Rx Instructions: As directed Referrals: [facility] [Provider Group] [facility] [Provider Group] Shahnaz Mahmood, PAJourdanC [Primary Care Provider] - Visit Report Forms: Patient Portal/API <Kymberly Andrews DO - Last Filed: 02/25/22 07:44> [facility] ED Attending Tucker Attestation: I was immediately available in the department for consultation. Documentation has been reviewed. I agree with assessment and plan.
[2022-02-24 13:04] LABS: Add Manual Diff / Slide Review NO; Basophils Absolute Auto 0 /uL (0-100); Basophils Percent Auto 0.4 % (0-2); Eosinophils Absolute Auto 400 /uL (0-450); Eosinophils Percent Auto 5.1 % (2-4); Hematocrit 43.5 % (41-53); Lymphocytes Absolute Auto 1800 /uL (1100-4500); Mean Corpuscular HGB Conc 34.4 % (30-36); Mean Corpuscular Hemoglobin 32.4 PG (26-34); Mean Corpuscular Volume 94.1 fL (80-100); Monocytes Absolute Auto 600 /uL (0-900); Monocytes Percent Auto 8.1 % (3-14); Neutrophils Absolute Auto 4500 /uL (1500-7000); Neutrophils Percent Auto 61.4 % (50-75); Platelet Count 156 X10^3/uL (150-400); Red Blood Cell Count 4.62 X10^6/uL (4.5-5.9); Red Cell Distribution Width 13.9 % (11.6-14.8); White Blood Cell Count 7.3 X10^3/uL (4.5-11.0)
[2022-02-24 13:21] LABS: Alanine Aminotransferase 32 IU/L (<50); Albumin Globulin Ratio 1.1 (1.0-2.8); Alkaline Phosphatase 51 U/L (38-126); Aspartate Aminotransferase 30 IU/L (17-59); BUN Creatinine Ratio 23.1 (6-22); Bilirubin Total 0.6 mg/dL (0.2-1.3); Blood Urea Nitrogen 18 mg/dL (9-20); Calcium 9.3 mg/dL (8.4-10.2); Carbon Dioxide 30 mmol/L (22-32); Chloride 99 mmol/L (98-107); Estimated Glomerular Filt Rate > 60 mL/min (>60); Globulin 3.5 g/dL (1.7-4.1); Glucose 179 mg/dL (80-110); HEMOLYSIS 23 (0-50); Lactate (Lactic Acid) 1.4 mmol/L (0.7-2.1); Lipase 71 U/L (23-300); Potassium 4.5 mmol/L (3.4-5.1); Sodium 136 mmol/L (137-145); Total Protein 7.5 g/dL (6.3-8.2)
[2022-02-24] MEDS: LACTATED RINGERS 1,000 ML 1000 ML IV (13:26)
[2022-02-24 13:28] LABS: COVID19 -Nasal RAPID Negative (Negative)
--- NOTE | 2022-02-24 14:10 | DI.US.S_ITS ---
PROCEDURE: US SCROTUM INDICATIONS: RIGHT SCROTAL PAIN TECHNIQUE: Real-time scanning was performed of the scrotum and testicles, with image documentation. Color and pulse Doppler interrogation was performed of both testicles. COMPARISON: [facility], CT, CT ABDOMEN PELVIS WO CON, 02/24/2022, 13:23. [facility], CT, CT KIDNEY URETER BLADDER (KUB), 02/18/2022, 6:46. FINDINGS: Right: Testicle is normal in size at 4 x 2.7 x 2.4 cm, and homogenous in echotexture. There are microcalcifications in the region of the right epididymis. Less likely a testicular capsule. Epididymis is normal in overall size and morphology. Trace hydrocele. No varicoceles. Overlying scrotal skin is normal in thickness. Left: Testicle is normal in size at 3.7 x 3.1 x 2.2 cm, and homogeneous in echotexture. Epididymis is normal in overall size and morphology. Small benign epididymal head cyst measuring 0.5 cm. Tiny calcifications in the region of the left epididymis. No hydrocele or varicoceles. Overlying scrotal skin is normal in thickness. Doppler: Color and pulse Doppler demonstrate normal and symmetric arterial flow in both testicles. IMPRESSION: 1. No hyperemia appreciated to suggest epididymitis. No torsion demonstrated. 2. Trace right hydrocele. No varicocele. 3. Microcalcifications in the region of the epididymi bilaterally. This is likely benign and could be due to atrophy or sperm granulomas. The clinical significance of this finding is uncertain. Dictated by: Miguel Domingo M.D. on 02/24/2022 at 15:39 Approved by: Miguel Domingo M.D. on 02/24/2022 at 15:44
[2022-02-24] MEDS: CIPROFLOXACIN 250 MG TABLET 500 MG PO (16:15)
[2022-02-24] MEDS: KETOROLAC 30 MG/ML VIAL 15 MG IV (16:29)
[2022-02-24 16:42] LABS: C-Reactive Protein Quant < 0.5 mg/dL (<1.0)
[2022-02-24 16:46] LABS: D Dimer 821 ng/ml (<500)
[2022-02-24 16:50] LABS: Erythrocyte Sedimentation Rate 1 MM/HR (0-15)
== END 2022-02-24 16:37 | disposition home or self-care (01) ==
PROVIDERS: Emergency Provider Nurse Practitioner Critical Care Medicine; Family Provider Student in an Organized Health Care Education/Training Program; PCP Student in an Organized Health Care Education/Training Program
DX: R10.823 Right lower quadrant rebound abdominal tenderness (principal); K62.89 Other specified diseases of anus and rectum; Z20.822 Contact with and (suspected) exposure to COVID-19
CPT/HCPCS: 36415; 51798; 74176; 76870; 80053; 81001; 81003; 82272; 83605; 83690; 85025; 85379; 85651; 86140; 87635; 93005; 93975; 96361; 96374; 99284; C9803; J1885

== ENCOUNTER 2022-03-06 03:24 | Emergency (ER) | payer MEDICARE, OTHER, SELFPAY ==
--- NOTE | 2022-03-06 03:25 | ED.ABDPAIN ---
HPI - Abdominal Pain General Chief Complaint: Abdominal Pain Stated Complaint: abd. pain Time Seen by Provider: 03/06/22 03:25 History of Present Illness HPI narrative: 76M former smoker with history of what is becoming chronic right lower quadrant pain in the absence of any significant findings despite multiple visits to the emergency department returns with a chief complaint of ongoing right lower quadrant pain that he states is present all the time but seems to intensify on occasion without obvious provocation. He denies any fever chills. He denies nausea or vomiting. He is had no constipation or diarrhea. He denies any dysuria, frequency or urgency. He does state that his abdomen is becoming bloated but overall he thinks he is losing weight. He has been taking medications as previously prescribed, he had been given Cipro for the diagnosis of proctitis. There was some discussion about him following up to pursue a colonoscopy but he is unable to do so thus far. He has not take anything for pain in the past few days. When asked about his iodine allergy states that it was given to him 15 or 20 years ago. Related Data Home Medications Medication Instructions Recorded Confirmed glipizide 10 mg tablet 10 mg PO BIDAC ##0 09/23/17 03/13/19 insulin glargine 100 unit/mL 23 unit SQ QPM ##0 09/23/17 03/13/19 subcutaneous solution (Lantus U-100 Insulin) losartan 50 mg tablet 50 mg PO DAILY 09/04/18 03/13/19 Resmed Airsense 10 CPAP #1 ea 03/13/19 03/13/19 atenolol 50 mg tablet 50 mg PO DAILY #0 tabs 03/13/19 03/13/19 metformin PO BID 03/13/19 03/13/19 Previous Rx's Medication Instructions Recorded albuterol sulfate 90 mcg/actuation 1 inh inhalation Q4-6H PRN 01/13/19 aerosol inhaler shortness of breath #18 grams hydrocodone 5 mg-acetaminophen 325 1 tab PO Q4H PRN pain #20 tabs 05/21/19 mg tablet ondansetron 4 mg disintegrating 4 mg PO Q8H PRN nausea and 02/18/22 tablet vomiting #10 tabs bisacodyl 10 mg rectal suppository 10 mg IA DAILY PRN constipation 02/24/22 #12 ea methocarbamol 500 mg tablet 500 mg PO TID #14 tabs 02/24/22 naproxen 375 mg tablet 375 mg PO BID PRN pain #14 tabs 02/24/22 polyethylene glycol 3350 17 17 g PO DAILY for soft stool #238 02/24/22 gram/dose oral powder (Miralax) grams Allergies Allergy/AdvReac Type Severity Reaction Status Date / Time Iodine and Iodide Containing Allergy Severe Anaphylaxis Verified 02/24/22 10:52 Produc [IODINE AND IODIDE CONTAINING PRODUC] Sulfa (Sulfonamide Allergy Severe My eyes Verified 02/24/22 10:52 Antibiotics) close up [SULFA (SULFONAMIDE and my ANTIBIOTICS)] face gets puffy Review of Systems Review of Systems Narrative: GENERAL: Denies chills, fatigue, malaise, fever, sweats. HEENT: Denies sinus pain, ear pain, sore throat, difficulty swallowing, dizziness. RESPIRATORY: Denies dyspnea, cough, wheezing, hemoptysis, sputum. CARDIOVASCULAR: Denies chest pain, palpitations, orthopnea, edema, GASTROINTESTINAL: See HPI : See HPI MUSCULOSKELETAL: denies weakness, joint pain, or bony pain SKIN: Denies rash, skin lesions, or other NEUROLOGIC: Denies weakness, headache, numbness, change in speech, confusion, seizures, incoordination. PSYCHIATRIC: No concerning psychosocial issues. 12 point review of systems is negative except for those stated above Patient History Medical History (Updated 03/06/22 @ 06:08 by Ky Cade DO) Diabetes Hyperlipidemia due to type 2 diabetes mellitus Hypertension associated with diabetes Obesity Obstructive sleep apnea of adult (~1994) Personal history of colonic polyps Surgical History History of cholecystectomy History of colonoscopy History of umbilical hernia repair Social History marital status: household members: spouse Smoking Status: Former smoker Smoking Status: Former smoker alcohol intake frequency: holidays/special occasions only Substance Use Type: does not use Exam Narrative Exam Narrative: GENERAL: [76] year old patient appears stated age. Well-developed patient, in mild distress. HEAD: Atraumatic. Normocephalic. EYES: Pupils equal round and reactive. Extraocular motions intact. No scleral icterus. No injection or drainage. ENT: Nose without bleeding, purulent drainage. Throat without erythema, tonsillar hypertrophy or exudate. Airway patent. NECK: Trachea midline. Non tender CARDIOVASCULAR: Regular rate and rhythm without murmurs, gallops, or rubs. RESPIRATORY: Clear to auscultation. Breath sounds equal bilaterally. No wheezes, rales, or rhonchi. GASTROINTESTINAL: Distended, bowel sounds present in all 4 quadrants, tender to palpation in the right lower quadrant EXTREMITIES: No edema or joint tenderness. BACK: Nontender without deformity or crepitance. No flank tenderness. NEURO: AOx3. SKIN: No rash or erythema of visible areas Initial Vital Signs Initial Vital Signs: Vital Signs Temperature 97.9 F 03/06/22 03:31 Pulse Rate 69 03/06/22 03:31 Respiratory Rate 17 03/06/22 03:31 Blood Pressure 183/74 H 03/06/22 03:31 Pulse Oximetry 97 03/06/22 03:31 Oxygen Delivery Method 03/06/22 03:31 Course Course Course Narrative: Had extensive discussion with the patient about his repeat visits and lack of improvement in overall diagnosis, perhaps even worsening and that i would like to consider an abdomen and pelvis CT but with IV contrast. We discussed difference contrast that as use in today's air and low molecular weight being less likely to cause reactions, also our plan to pretreat. After this discussion he agrees and is open to the concept. Orders Ordered: ED Orders 03/06/22 03:50 C-Reactive Protein Quant Stat Complete Blood Count AUTO DIFF Stat Comprehensive Metabolic Panel Stat Lactate (Lactic Acid) Stat Lipase Stat Magnesium Stat Prothrombin Time INR Stat 03/06/22 04:41 CT abdomen pelvis w con Stat Famotidine (Famotidine 20 Mg/2 Ml Vial) 20 mg IV NOW [facility] Last Admin: 03/06/22 03:48 Dose: 20 mg Documented By: EVA Sodium Chloride (Normal Saline 0.9%) 1,000 mls @ 125 mls/hr IV CONT RANDAL Last Admin: 03/06/22 03:48 Dose: 125 mls/hr Documented By: EVA Discontinued Medications Diphenhydramine HCl (Diphenhydramine 50 Mg/Ml Vial) 50 mg IV NOW ONE Stop: 03/06/22 03:41 Last Admin: 03/06/22 03:48 Dose: 50 mg Documented By: EVA Methylprednisolone (Methylprednisolone 125 Mg/2 Ml Vial) 125 mg IV NOW ONE Stop: 03/06/22 03:41 Last Admin: 03/06/22 03:48 Dose: 125 mg Documented By: EVA Vital Signs Vital signs: Vital Signs - 8 hr 03/06/22 03:31 Temperature 97.9 F Pulse Rate 69 Respiratory Rate 17 Blood Pressure 183/74 H Pulse Oximetry 97 Oxygen Delivery Method Room Air MDM - Abdominal Pain Lab Data Result diagrams: 03/06/22 03:50 03/06/22 03:50 Labs: Lab Results 03/06/22 03/06/22 03/06/22 Range/Units 03:50 03:50 03:50 WBC 7.5 (4.5-11.0) X10^3/uL RBC 4.58 (4.5-5.9) X10^6/uL Hgb 14.9 (13.5-17.5) g/dL Hct 43.3 (41-53) % MCV 94.5 (80-100) fL MCH 32.5 (26-34) PG MCHC 34.4 (30-36) % RDW 13.8 (11.6-14.8) % Plt Count 162 (150-400) X10^3/uL Neut % (Auto) 55.6 (50-75) % Lymph % (Auto) 28.6 (25-40) % [place] % (Auto) 12.3 (3-14) % Eos % (Auto) 2.9 (2-4) % Baso % (Auto) 0.6 (0-2) % Neut # (Auto) 4200 (6785-9790) /uL Lymph # (Auto) 2100 (7154-1823) /uL [place] # (Auto) 900 (0-900) /uL Eos # (Auto) 200 (0-450) /uL Baso # (Auto) 0 (0-100) /uL PT 12.7 (10.1-12.7) SECONDS INR 1.1 (0.9-1.3) Sodium 140 (137-145) mmol/L Potassium 4.3 (3.4-5.1) mmol/L Chloride 102 (98-107) mmol/L Carbon Dioxide 30 (22-32) mmol/L BUN 26 H (9-20) mg/dL Creatinine 1.09 (0.66-1.25) mg/dL Estimated GFR > 60 (>60) mL/min BUN/Creatinine Ratio 23.9 H (6-22) Glucose 144 H (80-110) mg/dL Lactate (0.7-2.1) mmol/L Calcium 9.2 (8.4-10.2) mg/dL Magnesium (1.6-2.3) mg/dL Total Bilirubin 0.6 (0.2-1.3) mg/dL AST 38 (17-59) IU/L ALT 51 H (<50) IU/L Alkaline Phosphatase 50 (38-126) U/L C-Reactive Protein < 0.5 (<1.0) mg/dL Total Protein 7.7 (6.3-8.2) g/dL Albumin 4.1 (3.5-5.0) g/dL Globulin 3.6 (1.7-4.1) g/dL Albumin/Globulin Ratio 1.1 (1.0-2.8) Lipase (23-300) U/L 03/06/22 03/06/22 Range/Units 03:50 03:50 WBC (4.5-11.0) X10^3/uL RBC (4.5-5.9) X10^6/uL Hgb (13.5-17.5) g/dL Hct (41-53) % MCV (80-100) fL MCH (26-34) PG MCHC (30-36) % RDW (11.6-14.8) % Plt Count (150-400) X10^3/uL Neut % (Auto) (50-75) % Lymph % (Auto) (25-40) % [place] % (Auto) (3-14) % Eos % (Auto) (2-4) % Baso % (Auto) (0-2) % Neut # (Auto) (7525-2553) /uL Lymph # (Auto) (0980-8844) /uL [place] # (Auto) (0-900) /uL Eos # (Auto) (0-450) /uL Baso # (Auto) (0-100) /uL PT (10.1-12.7) SECONDS INR (0.9-1.3) Sodium (137-145) mmol/L Potassium (3.4-5.1) mmol/L Chloride (98-107) mmol/L Carbon Dioxide (22-32) mmol/L BUN (9-20) mg/dL Creatinine (0.66-1.25) mg/dL Estimated GFR (>60) mL/min BUN/Creatinine Ratio (6-22) Glucose (80-110) mg/dL Lactate 1.5 (0.7-2.1) mmol/L Calcium (8.4-10.2) mg/dL Magnesium 2.1 (1.6-2.3) mg/dL Total Bilirubin (0.2-1.3) mg/dL AST (17-59) IU/L ALT (<50) IU/L Alkaline Phosphatase (38-126) U/L C-Reactive Protein (<1.0) mg/dL Total Protein (6.3-8.2) g/dL Albumin (3.5-5.0) g/dL Globulin (1.7-4.1) g/dL Albumin/Globulin Ratio (1.0-2.8) Lipase 130 D (23-300) U/L Imaging Data CT scan - abdomen/pelvis: Radiologist's Impression: Small volume free fluid adjacent to sigmoid adjacent to diverticuli. Large fecal burden, no perforation or abscess MDM Narrative Medical decision making narrative: Multiple etiologies for patient's symptoms considered include, but not limited to: [Bowel obstruction versus kidney stone versus diverticulitis versus other Patient's symptoms improved over duration of stay with above-stated therapies. History, physical exam, labs, imaging, and response to therapies have been reassuring. Findings and discharge diagnosis discussed with patient/family followed by verbalization of understanding Return precautions discussed with patient/family whom verbalize understanding. Pain has been well controlled and patient is tolerating oral hydration. Discharge Plan Departure Patient Disposition: Home Clinical Impression: Abdominal pain, Constipation Instructions: DI for Constipation Activity Restrictions/Additional Instructions: *You have been diagnosed with [ abdominal pain due to constipation ] *What to do: *Take over the counter medications as directed: 1. Metamucil - bulk forming laxative adds fiber 2. Colace - softens your stool 3. Dulcolax Suppository - stimulates your bowels from the bottom *Follow up with your primary care provider in 2-3 days, call for appointment *Return to ER if you should have any new, worsening or concerning symptoms *Drink plenty of water and eat foods high in fiber *Try to be as active as possible, consider walking your dog daily Prescriptions: No Action albuterol sulfate 90 mcg/actuation HFA aerosol inhaler 1 inh INHALATION Q4-6H PRN (Reason: shortness of breath) Qty: 18 0RF Lantus U-100 Insulin 100 UNIT/1 ML solution 23 unit SQ QPM Qty: 0 glipizide 10 MG tablet 10 mg PO BIDAC Qty: 0 atenolol 50 mg tablet 50 mg PO DAILY Qty: 0 losartan 50 mg Tablet 50 mg PO DAILY hydrocodone-acetaminophen 5-325 mg tablet 1 tab PO Q4H PRN (Reason: pain) Qty: 20 0RF ondansetron 4 mg tablet,disintegrating 4 mg PO Q8H PRN (Reason: nausea and vomiting) Qty: 10 0RF polyethylene glycol 3350 [Miralax] 17 gram/dose powder 17 g PO DAILY Qty: 238 0RF bisacodyl 10 mg suppository 10 mg IA DAILY PRN (Reason: constipation) Qty: 12 0RF naproxen 375 mg tablet 375 mg PO BID PRN (Reason: pain) Qty: 14 0RF methocarbamol 500 mg tablet 500 mg PO TID Qty: 14 0RF metformin PO BID (DME) Resmed Airsense 10 CPAP Qty: 1 Label Comments: Pressure: 8-12 cmH2O DME: [facility] Rx Instructions: As directed Referrals: Shahnaz Mahmood PA-C [Primary Care Provider] -
[2022-03-06 03:31] VITALS: BP 183/74; PULSE 69; RESP 17; TEMP 36.6; O2SAT 97; BMI 32.0
[2022-03-06] MEDS: diphenhydrAMINE 50 MG/ML VIAL IV (03:48)
[2022-03-06] MEDS: FAMOTIDINE 20 MG/2 ML VIAL IV (03:48)
[2022-03-06] MEDS: SODIUM CHLORIDE 0.9% 1,000 ML 125 ML IV (03:48)
[2022-03-06] MEDS: methylPREDNISolone 125 MG/2 ML VIAL IV (03:48)
[2022-03-06 04:03] LABS: Add Manual Diff / Slide Review NO; Basophils Absolute Auto 0 /uL (0-100); Basophils Percent Auto 0.6 % (0-2); Eosinophils Absolute Auto 200 /uL (0-450); Eosinophils Percent Auto 2.9 % (2-4); Hematocrit 43.3 % (41-53); Hemoglobin 14.9 g/dL (13.5-17.5); Lymphocytes Absolute Auto 2100 /uL (1100-4500); Lymphocytes Percent Auto 28.6 % (25-40); Mean Corpuscular HGB Conc 34.4 % (30-36); Mean Corpuscular Hemoglobin 32.5 PG (26-34); Mean Corpuscular Volume 94.5 fL (80-100); Monocytes Absolute Auto 900 /uL (0-900); Monocytes Percent Auto 12.3 % (3-14); Neutrophils Absolute Auto 4200 /uL (1500-7000); Neutrophils Percent Auto 55.6 % (50-75); Platelet Count 162 X10^3/uL (150-400); Red Blood Cell Count 4.58 X10^6/uL (4.5-5.9); Red Cell Distribution Width 13.8 % (11.6-14.8); White Blood Cell Count 7.5 X10^3/uL (4.5-11.0)
[2022-03-06 04:14] LABS: INR 1.1 (0.9-1.3); Prothrombin Time 12.7 SECONDS (10.1-12.7)
[2022-03-06 04:19] LABS: Lactate (Lactic Acid) 1.5 mmol/L (0.7-2.1); Lipase 130 U/L (23-300); Magnesium 2.1 mg/dL (1.6-2.3)
[2022-03-06 04:21] LABS: Alanine Aminotransferase 51 IU/L (<50); Albumin 4.1 g/dL (3.5-5.0); Albumin Globulin Ratio 1.1 (1.0-2.8); Alkaline Phosphatase 50 U/L (38-126); Aspartate Aminotransferase 38 IU/L (17-59); BUN Creatinine Ratio 23.9 (6-22); Bilirubin Total 0.6 mg/dL (0.2-1.3); Blood Urea Nitrogen 26 mg/dL (9-20); C-Reactive Protein Quant < 0.5 mg/dL (<1.0); Calcium 9.2 mg/dL (8.4-10.2); Carbon Dioxide 30 mmol/L (22-32); Chloride 102 mmol/L (98-107); Estimated Glomerular Filt Rate > 60 mL/min (>60); Globulin 3.6 g/dL (1.7-4.1); Glucose 144 mg/dL (80-110); HEMOLYSIS 35 (0-50); Potassium 4.3 mmol/L (3.4-5.1); Sodium 140 mmol/L (137-145); Total Protein 7.7 g/dL (6.3-8.2)
[2022-03-06 04:30] VITALS: BP 163/70; PULSE 67; RESP 18; O2SAT 95
--- NOTE | 2022-03-06 04:41 | DI.CT.S_ITS ---
PROCEDURE: CT ABDOMEN PELVIS W CON INDICATIONS: severe RLQ pain, bloating, worsening over weeks TECHNIQUE: After the administration of intravenous contrast, axial sections acquired from the lung bases to the pubic symphysis. Coronal and sagittal reformats were performed. For radiation dose reduction, the following was used: automated exposure control, adjustment of mA and/or kV according to patient size. COMPARISON: [facility], CT, CT ABDOMEN PELVIS WO [facility], 02/24/2022, 13:23. FINDINGS: Image quality: Excellent. Lung bases: Unremarkable. Heart: No significant findings. ABDOMEN: Liver: Unremarkable. Gallbladder: Surgically absent Biliary ducts: Unremarkable. Pancreas: Scattered calcifications consistent with prior pancreatitis. Spleen: Unremarkable. Adrenal Glands: Unremarkable. Kidneys and Ureters: Unremarkable. Stomach and Bowel: Stomach, small bowel loops, and colon are unremarkable. Scattered colonic diverticula with a trace amount of free fluid near the sigmoid colon. The appendix is normal. Large stool volume. Peritoneum: No abnormal intraperitoneal fluid. No free air. Ventral Wall: No hernias. Abdominal Nodes: No retroperitoneal or mesenteric adenopathy by size criteria. Vessels: Calcific atherosclerotic disease aorta and major branches. PELVIS: Pelvic Organs: Unremarkable. Bladder: Unremarkable. Pelvic Nodes: No enlarged lymph nodes. Miscellaneous: No hernias are seen. Bones: Unremarkable. IMPRESSION: 1. Numerous colonic diverticula with small amount of free fluid near the sigmoid colon suggestive of simple acute sigmoid diverticulitis. 2. The appendix is normal. 3. Large stool volume. 4. Sequela of chronic pancreatitis without findings to suggest acute changes. No discrepancies from prior interpretation. Dictated by: Quincy Villeda M.D. on 03/06/2022 at 7:18 Approved by: Quincy Villeda M.D. on 03/06/2022 at 7:24
[2022-03-06 06:00] VITALS: BP 145/67; PULSE 70; RESP 18; O2SAT 96
== END 2022-03-06 06:37 | disposition home or self-care (01) ==
PROVIDERS: Emergency Provider Emergency Medicine; Family Provider Student in an Organized Health Care Education/Training Program; PCP Student in an Organized Health Care Education/Training Program
DX: K59.00 Constipation, unspecified (principal); R10.31 Right lower quadrant pain
CPT/HCPCS: 36415; 74177; 80053; 83605; 83690; 83735; 85025; 85610; 86140; 96374; 96375; 99284; J1200; J2930; Q9967

== ENCOUNTER → 2022-06-29 16:10 | Outpatient (CLI) | payer OTHER, SELFPAY ==
--- NOTE | 2022-06-29 | DI.RAD.S_ITS ---
PROCEDURE: XR EYE FOREIGN BODY RT INDICATIONS: PRE MRI SCREENING TECHNIQUE: A single view of the orbits was acquired. COMPARISON: None. FINDINGS: Soft tissues: No metallic foreign bodies are visualized around the orbits. Bones: Bony structures appear unremarkable. Visualized sinuses appear clear. IMPRESSION: No metallic density foreign body identified that would preclude MRI. Dictated by: Antoinette Hurley MD, PhD on 06/29/2022 at 16:45 Approved by: Antoinette Hurley MD, PhD on 06/29/2022 at 16:45
--- NOTE | 2022-06-29 16:13 | DI.MRI.S_ITS ---
PROCEDURE: MR LUMBAR SPINE WO CON INDICATIONS: LOW BACK PAIN TECHNIQUE: Noncontrast sagittal T1 spin echo and T2 fast echo, sagittal STIR, and T2 fast spin echo through the lumbar spine. In cases with scoliosis, additional coronal T2 fast spin echo may be performed. COMPARISON: None. FINDINGS: Image quality: Excellent. Alignment and Curvature: There is normal bony alignment. Bone Marrow: There is no marrow edema. No acute vertebral body compression fractures. Modic type 2 degenerative endplate changes involving inferior endplate of L2 vertebral body is seen. Spinal Cord: Conus medullaris terminates at the L1 level. Visualized cord demonstrates normal signal and size. Paraspinous Soft Tissues: No paravertebral masses. T12-L1: Normal appearance. L1-L2: Loss of disc signal is seen. Mild broad-based disc bulge is noted. No significant canal stenosis or neural foraminal narrowing. L2-L3: Loss of signal and degenerative endplate changes are seen. Broad-based disc bulge and bilateral facet arthrosis is seen. No significant canal stenosis or neural foraminal narrowing. L3-L4: There is loss of disc signal. Broad-based disc bulge and bilateral facet arthrosis is seen with mild central canal stenosis and [id number] bilateral neural foraminal narrowing. L4-L5: Loss of disc height and disc signal is seen. Broad-based disc bulge and bilateral facet arthrosis is seen. There is mild central canal stenosis. Moderate to severe right-sided neural foraminal narrowing and moderate left-sided neural foraminal narrowing is seen. L5-S1: Broad-based disc bulge and bilateral facet arthrosis is noted with mild central canal stenosis and bilateral neural foraminal narrowing. IMPRESSION: 1. Degenerative disc bulge and bilateral facet arthrosis throughout lumbar spine causing mild central canal stenosis and moderate to severe bilateral neural foraminal narrowing most notably at L4-5 level as above. 2. No marrow edema. No acute compression fracture or spondylolisthesis. Dictated by: Haseeb Escalona M.D. on 06/30/2022 at 9:31 Approved by: Haseeb Escalona M.D. on 06/30/2022 at 9:34
== END ==
PROVIDERS: Family Provider Student in an Organized Health Care Education/Training Program; PCP Student in an Organized Health Care Education/Training Program; Referring Provider Nurse Practitioner Family; Visit Provider Nurse Practitioner Family
DX: M51.36 Other intervertebral disc degeneration, lumbar region (principal); M51.37 Other intervertebral disc degeneration, lumbosacral region; M48.061 Spinal stenosis, lumbar region without neurogenic claudication; M48.07 Spinal stenosis, lumbosacral region; M47.816 Spondylosis without myelopathy or radiculopathy, lumbar region; M47.817 Spondylosis without myelopathy or radiculopathy, lumbosacral region; M54.50 Low back pain, unspecified
CPT/HCPCS: 70030; 72148

== ENCOUNTER → 2022-09-17 09:08 | Outpatient (CLI) | payer MEDICARE, OTHER, SELFPAY ==
[2022-09-17 12:17] LABS: Alanine Aminotransferase 31 IU/L (<50); Albumin 4.2 g/dL (3.5-5.0); Albumin Globulin Ratio 1.3 (1.0-2.8); Alkaline Phosphatase 65 U/L (38-126); Aspartate Aminotransferase 28 IU/L (17-59); BUN Creatinine Ratio 32.1 (6-22); Bilirubin Total 0.6 mg/dL (0.2-1.3); Blood Urea Nitrogen 27 mg/dL (9-20); Calcium 9.4 mg/dL (8.4-10.2); Carbon Dioxide 29 mmol/L (22-32); Chloride 99 mmol/L (98-107); Estimated Glomerular Filt Rate > 60 mL/min (>60); Globulin 3.3 g/dL (1.7-4.1); Glucose 213 mg/dL (80-110); HEMOLYSIS < 15 (0-50); Potassium 4.8 mmol/L (3.4-5.1); Sodium 136 mmol/L (137-145); Total Protein 7.5 g/dL (6.3-8.2)
== END ==
PROVIDERS: Family Provider Student in an Organized Health Care Education/Training Program; PCP Student in an Organized Health Care Education/Training Program; Referring Provider Internal Medicine Cardiovascular Disease; Visit Provider Internal Medicine Cardiovascular Disease
DX: I42.9 Cardiomyopathy, unspecified (principal)
CPT/HCPCS: 36415; 80053

== ENCOUNTER → 2023-05-11 07:53 | Outpatient (CLI) | payer OTHER, SELFPAY | PROVIDERS: Family Provider Student in an Organized Health Care Education/Training Program; PCP Student in an Organized Health Care Education/Training Program; Referring Provider Nurse Practitioner Family; Visit Provider Nurse Practitioner Family | DX: J84.10 Pulmonary fibrosis, unspecified (principal); Z87.891 Personal history of nicotine dependence | CPT/HCPCS: 94060; 94726; 94729 ==

== ENCOUNTER → 2023-06-29 13:08 | Outpatient (CLI) | payer MEDICARE, OTHER, SELFPAY ==
--- NOTE | 2023-06-29 13:40 | DI.RAD.S_ITS ---
PROCEDURE: XR CHEST 2V INDICATIONS: Cough TECHNIQUE: 2 views of the chest were acquired. COMPARISON: [facility], CT, CT HIGH RESOLUTION CHEST, 08/03/2022, 8:25. [facility], CR, CHEST 2 VIEW, 07/14/2017, 13:20. [facility], , CHEST 1 VIEW, 05/15/2014, 6:27. FINDINGS: Surgical changes and devices: Cholecystectomy clips. Lungs and pleura: No consolidation identified. Diffuse prominent pulmonary markings, unchanged. No pleural effusions or pneumothorax. Mediastinum: Mediastinal contours are normal. Heart size is normal. Bones and chest wall: No suspicious bony abnormalities. Soft tissues appear unremarkable. IMPRESSION: No interval change seen. No consolidation. Diffuse prominent pulmonary markings. Suspect interstitial lung disease. Dictated by: Miguel Domingo M.D. on 06/29/2023 at 14:28 Approved by: Miguel Domingo M.D. on 06/29/2023 at 14:30
[2023-06-29 13:55] LABS: Influenza A - CEPHEID Flu A POSITIVE (NEGATIVE); Influenza B - CEPHEID Flu B NEGATIVE (NEGATIVE); Respiratory Syncytial Virus Negative (Negative)
[2023-06-29 14:01] LABS: COVID-19 CEPHEID 4-PLEX PCR Negative (Negative)
== END ==
PROVIDERS: Family Provider Student in an Organized Health Care Education/Training Program; PCP Student in an Organized Health Care Education/Training Program; Referring Provider Nurse Practitioner Family; Visit Provider Nurse Practitioner Family
DX: R05.1 Acute cough (principal); R05.9 Cough, unspecified
CPT/HCPCS: 0241U; 71046

== ENCOUNTER → 2023-08-04 12:24 | Outpatient (CLI) | payer MEDICARE, OTHER, SELFPAY ==
--- NOTE | 2023-08-04 12:25 | DI.ECHO.S_ITS ---
[facility]---------+ [facility] +---------+ : : [address] : : : : [id number] : : : : Phone: [phone]---------+ Echocardiogram Report + + :Name: MANPREET SCHULTZ Study Date: 08/04/2023 Height: 68 in : :[facility] ReadingLocation: Weight: 222 lb : : Gender: Male BSA: 2.1 m2 : :: 1945 Age: 78 yrs BP: 137/83 mmHg: :Reason For Study: CARDIOMYOPATHY : :Ordering Physician: JAZZY, : :ROWAN Ocampo Performed By: Lupe Harkins : :Referring: ROWAN ROMAN : + + Interpretation Summary The ejection fraction is estimated to be 40-45%. Diastolic function could not be accurately assessed due to contradictory data. The right ventricle is normal in size and function. There is mild mitral regurgitation. Pulmonary artery pressures cannot be estimated because of the lack of a measurable TR jet velocity but the IVC suggests a CVP of around 3 mmHg. Compared to the prior study dated 07/11/2021, there is a slight decrease in the ejection fraction. Procedure: A two-dimensional transthoracic echocardiogram with color flow and Doppler was performed. The study quality was technically adequate. There is no prior echocardiogram noted for this patient. The patient had a bundle branch block rhythm during the exam. The heart rate ranged between 59-75 bpm during the study. Left Ventricle: The left ventricle is normal in size. Proximal septal thickening is noted. The ejection fraction is estimated to be 40-45%. Septal motion is consistent with conduction abnormality. Diastolic function could not be accurately assessed due to contradictory data. Right Ventricle: The right ventricle is normal in size and function. Atria: The left atrial size is normal. Right atrial size is normal. There is no Doppler evidence for an interatrial shunt. Mitral Valve: There is mild mitral annular calcification. The mitral valve leaflets appear mildly thickened, but open well. There is mild mitral regurgitation. Aortic Valve: The aortic valve is trileaflet. The aortic valve is mildly calcified. There is no aortic valve stenosis. No aortic regurgitation is present. Tricuspid Valve: The tricuspid valve is normal in structure and function. There is trace tricuspid regurgitation. Pulmonary artery pressures cannot be estimated because of the lack of a measurable TR jet velocity but the IVC suggests a CVP of around 3 mmHg. Pulmonic Valve: The pulmonic valve leaflets are thin and pliable; valve motion is normal. There is no pulmonic valvular regurgitation. Great Vessels: The aortic root is normal size. The dimensions of the ascending aorta are normal. The IVC is of normal diameter and collapses greater than 50% with a sniff. This suggests a low right atrial pressure of 3 mm Hg. Pericardium/ Pleura There is no pericardial effusion. There is no pleural effusion. MMode/2D Measurements & Calculations LVIDd: 5.4 cm LVOT diam: 2.1 cm LVIDs: 4.2 cm Ao root diam: 3.3 cm FS: 22.8 % asc Aorta Diam: 3.6 cm EPSS: 0.85 cm Ao Arch Diam (Prox Trans): 2.6 cm IVSd: 0.86 cm LVPWd: 0.99 cm LV grady. diameter/BSA (cm/m^2): 2.5 LV sys. diameter/BSA (cm/m^2): 2.0 LA A2 area: 17.4 cm2 RA long axis: 4.5 cm LA A4 area: 14.5 cm2 RA area: 9.5 cm2 LA length (vol): 4.3 cm RA vol: 17.0 ml LA vol: 49.4 ml RA : 8.0 ml/m2 LA vol index: 23.1 ml/m2 IVC diam: 1.5 cm RVD1 (basal): 3.4 cm TAPSE: 1.7 cm Doppler Measurements & Calculations Ao V2 max: 137.2 cm/sec LVOT Max Adilson: 99.7 cm/sec Ao V2 mean: 101.4 cm/sec LV V1 max P.0 mmHg Ao max P.5 mmHg LV V1 VTI: 21.3 cm Ao mean P.5 mmHg LYNDA(I,D): 2.2 cm2 Ao V2 VTI: 32.0 cm LYNDA(V,D): 2.4 cm2 sev ratio: 0.67 LYNDA indexed to BSA (cm^2/m^2): 1.0 MV E max adilson: 90.0 cm/sec PA V2 max: 68.4 cm/sec MV A max adilson: 105.6 cm/sec PA V2 mean: 49.5 cm/sec MV E/A: 0.85 PA mean P.1 mmHg Med Peak E' Adilson: 5.7 cm/sec PA pr(Accel): 48.2 mmHg E/E' med: 15.8 Lat Peak E' Adilson: 5.2 cm/sec E/E' lat: 17.3 E/e' average: 16.5 MV dec time: 0.26 sec SV(LVOT): 71.8 ml Reading Physician:04:48 PM
== END ==
PROVIDERS: Family Provider Student in an Organized Health Care Education/Training Program; PCP Student in an Organized Health Care Education/Training Program; Referring Provider Internal Medicine Cardiovascular Disease; Visit Provider Internal Medicine Cardiovascular Disease
DX: I34.81 Nonrheumatic mitral (valve) annulus calcification (principal); I34.0 Nonrheumatic mitral (valve) insufficiency; I42.9 Cardiomyopathy, unspecified
CPT/HCPCS: 93306

== ENCOUNTER → 2023-11-25 11:07 | Outpatient (CLI) | payer MEDICARE, OTHER, SELFPAY ==
--- NOTE | 2023-11-25 11:10 | DI.RAD.S_ITS ---
PROCEDURE: XR CHEST 2V INDICATIONS: Dyspnea, wheezing TECHNIQUE: 2 views of the chest were acquired. COMPARISON: [facility], RACIEL, XR CHEST 2V, 06/29/2023, 13:50. [facility], RACIEL, CHEST 2 VIEW, 07/14/2017, 13:20. FINDINGS: Surgical changes and devices: Right upper quadrant surgical clips. Lungs and pleura: Diffuse prominence of the interstitial markings are redemonstrated.. No pleural effusions or pneumothorax. Mediastinum: Mediastinal contours are normal. Heart size is normal. Bones and chest wall: No suspicious bony abnormalities. Soft tissues appear unremarkable. IMPRESSION: Redemonstration of diffuse prominent interstitial markings which likely represents interstitial lung disease. This is better evaluated on prior CT chest. No new focal pulmonary consolidations are identified. Dictated by: Grady Dale M.D. on 11/25/2023 at 10:36 Approved by: Grady Dale M.D. on 11/25/2023 at 10:38
== END ==
PROVIDERS: Family Provider Student in an Organized Health Care Education/Training Program; PCP Student in an Organized Health Care Education/Training Program; Referring Provider Physician Assistant Surgical; Visit Provider Physician Assistant Surgical
DX: R06.00 Dyspnea, unspecified (principal)
CPT/HCPCS: 71046

== ENCOUNTER → 2024-07-24 06:54 | Outpatient (CLI) | payer MEDICARE, OTHER, SELFPAY ==
--- NOTE | 2024-07-24 06:55 | DI.CT.S_ITS ---
PROCEDURE: CT CHEST HIGH RESOLUTION INDICATIONS: Eval for pulm fibrosis, noted abnormality on XR chest TECHNIQUE: Noncontrast 1.0 and 5.0 mm thick contiguous axial sections from the pulmonary apex to the posterior costophrenic angles, with 7 mm thick coronal and sagittal MIP reformats. 1 mm thick dynamic expiratory images acquired through the upper, mid, and lower lungs. 1.0 mm thick axial sections acquired from the racheal to the posterior costophrenic angles in the prone end-inspiration position. For radiation dose reduction, the following was used: automated exposure control, adjustment of mA and/or kV according to patient size. COMPARISON: [facility], CT, CT HIGH RESOLUTION CHEST, 04/03/2024, 7:43. FINDINGS: Image quality: Diagnostic. Lower Neck: No enlarged lymph nodes. Thyroid: Normal CT appearance. Axillae: No enlarged lymph nodes. Chest Wall: Mild gynecomastia. Bones: Bridging osteophytosis throughout the thoracic spine. Lungs and Pleura: Circumferential subpleural reticulation and mild interstitial thickening including lung bases and lung apices. Mild traction bronchiectasis involving lingula, right middle lobe, and anterior left upper lobe. There is right lower lobe bronchial wall thickening. No honeycombing. There is stable architectural distortion anterior left upper lobe. No acute ground-glass opacities. There is minimal air trapping, predominantly anterior right upper lobe. No significant change during prone imaging. Calcified clustered right upper lobe nodules, 3/118, and Yady fissural nodule in the left mid lung are benign. No suspicious nodule or mass. Heart: Heart size is normal. No pericardial effusion. Moderate coronary artery calcification. Thoracic Vessels: The aorta and pulmonary arteries demonstrate normal size. Mediastinum and Maile: Several borderline mediastinal lymph nodes, slightly more prominent compared to prior. Largest in the right paratracheal region measures 1.0 cm short axis. Esophagus: No wall thickening. No hiatal hernia. Upper Abdomen: Numerous punctate calcifications throughout the visible portion of pancreas. No visible ductal dilatation. Cholecystectomy. Visible portions of upper abdominal organs are otherwise normal. IMPRESSION: Findings of likely usual interstitial pneumonitis pattern without significant progression since the prior exam. Probably reactive, borderline mediastinal. Partially seen changes chronic pancreatitis. Dictated by: Rissa Velasco M.D. on 07/24/2024 at 15:00 Approved by: Rissa Velasco M.D. on 07/24/2024 at 15:18
== END ==
PROVIDERS: Family Provider Student in an Organized Health Care Education/Training Program; PCP Student in an Organized Health Care Education/Training Program; Referring Provider Student in an Organized Health Care Education/Training Program; Visit Provider Student in an Organized Health Care Education/Training Program
DX: J84.10 Pulmonary fibrosis, unspecified (principal); R91.8 Other nonspecific abnormal finding of lung field; K86.1 Other chronic pancreatitis; I25.10 Atherosclerotic heart disease of native coronary artery without angina pectoris; Z90.49 Acquired absence of other specified parts of digestive tract; N62 Hypertrophy of breast
CPT/HCPCS: 71250

== ENCOUNTER → 2024-08-20 14:43 | Outpatient (CLI) | payer OTHER, SELFPAY | PROVIDERS: Family Provider Student in an Organized Health Care Education/Training Program; PCP Student in an Organized Health Care Education/Training Program; Referring Provider Internal Medicine Pulmonary Disease; Visit Provider Internal Medicine Pulmonary Disease | DX: J84.10 Pulmonary fibrosis, unspecified (principal); Z87.891 Personal history of nicotine dependence; R94.2 Abnormal results of pulmonary function studies | CPT/HCPCS: 94060; 94726; 94729 ==

== ENCOUNTER 2025-01-31 04:38 | Emergency (ER) | payer MEDICARE, SELFPAY ==
[2025-01-31 04:43] VITALS: BP 177/84; PULSE 77; RESP 18; TEMP 36.2; O2SAT 97; BMI 32.1
--- NOTE | 2025-01-31 04:57 | ED.MEDCLEAR ---
HPI - Medical Clearance General Chief complaint: Medical Clearance Stated complaint: low blood sugar Time Seen by Provider: 01/31/25 04:43 Source: patient Mode of arrival: Ambulatory History of Present Illness HPI Narrative: 79-year-old gentleman history of COPD type 2 diabetes on Lantus 44 units in the morning metformin and Jarstephanie noticed that his blood sugar alarm was going off this evening starting at 9:00 p.m. that it was reading in low low low in the 50 and he continually started to check it frequently this evening despite taking sugar tablets was still reading 50s and 60s. He subsequently took more carbohydrates in including white bread and sugary desserts and came in to be evaluated. Patient denied being sweaty lightheaded chest pain shortness of breath or weak. Other than what is stated 14 point review of system is negative. Related Information Home Medications ?Medication ?Instructions ?Recorded ?Confirmed insulin glargine 100 unit/mL 23 unit SQ QPM ##0 09/23/17 11/06/24 subcutaneous solution (Lantus U-100 Insulin) losartan 50 mg tablet 50 mg PO DAILY 09/04/18 11/06/24 Resmed Airsense 10 CPAP #1 ea 03/13/19 11/06/24 metformin PO BID 03/13/19 11/06/24 eliquis PO 06/29/23 11/06/24 gabapentin 300 mg capsule 300 mg PO DAILY 06/29/23 11/06/24 levetiracetam 500 mg tablet 500 mg PO BID 07/18/24 11/06/24 (Keppra) Previous Rx's ?Medication ?Instructions ?Recorded polyethylene glycol 3350 17 17 g PO DAILY for soft stool #238 02/24/22 gram/dose oral powder (Miralax) grams inhalational spacing device #1 ea 06/29/23 (Aerochamber MV spacer) albuterol sulfate 90 mcg/actuation 2 puff inhalation Q6H PRN 11/25/23 aerosol inhaler shortness of breath or wheezing #6.7 grams tiotropium 2.5 mcg-olodaterol 2.5 2 puff inhalation DAILY #4 grams 11/07/24 mcg/actuation mist for inhalation (Stiolto Respimat) Allergies Allergy/AdvReac Type Severity Reaction Status Date / Time Iodine and Iodide Containing Allergy Severe Anaphylaxis Verified 01/31/25 04:44 Produc (IODINE AND IODIDE CONTAINING PRODUC) Sulfa (Sulfonamide Allergy Severe My eyes Verified 01/31/25 04:44 Antibiotics) (SULFA close up (SULFONAMIDE ANTIBIOTICS)) and my face gets puffy Penicillins Allergy Unknown unknown Verified 01/31/25 04:44 Review of Systems Review of Systems ROS Unobtainable: All systems reviewed & are unremarkable except as noted in HPI and below Patient History Medical History (Updated 01/31/25 @ 05:22 by Tanner Estrada DO) Pulmonary fibrosis Obstructive sleep apnea of adult (~1994) Hyperlipidemia due to type 2 diabetes mellitus Personal history of colonic polyps Hypertension associated with diabetes Diabetes Obesity Surgical History History of colonoscopy History of umbilical hernia repair History of cholecystectomy Social History marital status: household members: spouse Smoking Status: Former smoker alcohol intake frequency: holidays/special occasions only Exam Narrative Exam Narrative: GENERAL: [79] year old patient appears stated age. Well-developed patient, in mild distress. HEAD: Atraumatic. Normocephalic. EYES: Pupils equal round and reactive. Extraocular motions intact. No scleral icterus. No injection or drainage. ENT: Nose without bleeding, purulent drainage. Throat without erythema, tonsillar hypertrophy or exudate. Airway patent. NECK: Trachea midline. Non tender CARDIOVASCULAR: Regular rate and rhythm without murmurs, gallops, or rubs. RESPIRATORY: Clear to auscultation. Breath sounds equal bilaterally. No wheezes, rales, or rhonchi. GASTROINTESTINAL: Abdomen soft, non-tender, nondistended. EXTREMITIES: No edema or joint tenderness. BACK: Nontender without deformity or crepitance. No flank tenderness. NEURO: AOx3. SKIN: No rash or erythema of visible areas Initial Vital Signs Initial Vital Signs: Vital Signs Temperature 97.1 F L 01/31/25 04:43 Pulse Rate 77 01/31/25 04:43 Respiratory Rate 18 01/31/25 04:43 Blood Pressure 177/84 H 01/31/25 04:43 Pulse Oximetry 97 01/31/25 04:43 Oxygen Delivery Method Room Air 01/31/25 04:43 MDM - Medical Clearance Lab Data Labs: Lab Results 01/31/25 Range/Units 04:41 POC Whole Bld Glucose 249 H (70-99) mg/dL MDM Narrative Medical decision making narrative: Vital signs, nurse triage note, medication list, previous ER visits, and all imaging studies reviewed. Blood sugar was rechecked twice here 249 and 287. Patient currently asymptomatic care. Differential diagnosis faulty sensor, blood glucose monitoring malfunction, hypoglycemia. Discharge Plan Departure Patient Disposition: Home Clinical Impression: Diabetes type 2 Qualifiers: Diabetes mellitus snf insulin use: with terminal superintendent use Diabetes mellitus complication status: with hypoglycemia Diabetes mellitus complication detail: without coma Qualified Code(s): E11.649 - Type 2 diabetes mellitus with hypoglycemia without coma; Z79.4 - assisted (current) use of insulin Activity Restrictions/Additional Instructions: Return with new or worsening symptoms. Follow up PCP in 1-2 days for recheck. Prescriptions: No Action gabapentin 300 mg capsule 300 mg PO DAILY eliquis PO (DME) Aerochamber MV Spacer See Rx Instructions .ROUTE .MEDSUPPLY Qty: 1 0RF Rx Instructions: As directed albuterol sulfate 90 mcg/actuation HFA aerosol inhaler 2 puff inhalation Q6H PRN (Reason: shortness of breath or wheezing) Qty: 6.7 0RF Lantus U-100 Insulin 100 UNIT/1 ML solution 23 unit SQ QPM Qty: 0 Stiolto Respimat 2.5-2.5 mcg/actuation mist 2 puff inhalation DAILY Qty: 4 5RF losartan 50 mg Tablet 50 mg PO DAILY polyethylene glycol 3350 [Miralax] 17 gram/dose powder 17 g PO DAILY Qty: 238 0RF levetiracetam [Keppra] 500 mg tablet 500 mg PO BID metformin PO BID (DME) Resmed Airsense 10 CPAP Qty: 1 Patient Comments: Pressure: 8-12 cmH2O DME: [facility] Rx Instructions: As directed Referrals: Miscellaneous,Doctor, MD [Primary Care Provider, Medical] Stand Alone Forms: Patient Portal/API
== END 2025-01-31 05:25 | disposition home or self-care (01) ==
PROVIDERS: Emergency Provider Family Medicine; Family Provider Student in an Organized Health Care Education/Training Program
DX: E11.649 Type 2 diabetes mellitus with hypoglycemia without coma (principal)
CPT/HCPCS: 82962; 99281; 99282